=== PATIENT | female | born 1965 | race Caucasian/White ===

== ENCOUNTER 2018-07-25 18:23 | Emergency (ER) | payer BC ==
[2018-07-25] MEDS ORDERED: DIAZEPAM 2 MG TABLET ONE (20:06)
[2018-07-25] MEDS ORDERED: KETOROLAC 30 MG/ML INJ ONE (20:06)
[2018-07-25] MEDS ORDERED: FENTANYL CITR 100 MCG/2 ML ONE (20:06)
--- NOTE | 2018-07-25 20:08 | EDPHYS ---
Physician Documentation [facility] Name: Leeanne Sinclair Age: 53 yrs Sex: Female : 1965 Arrival Date: 07/25/2018 Time: 18:26 Bed External Waiting Private MD: Neeraj Driver C ED Physician Bhupendra Malik HPI: 07/25 19:57 This 53 yrs old Female presents to ER via Ambulatory with complaints of Back snw Pain. 19:57 The patient presents with pain that is acute. The symptoms are located in the low back. snw Onset: The symptoms/episode began/occurred suddenly, 3 day(s) ago, and became persistent. The pain radiates to the left lower back and left gluteus ivania. Associated signs and symptoms: The patient has no apparent associated signs or symptoms. The problem was sustained when lifting patient. Severity of symptoms: At their worst the symptoms were moderate, severe. The patient has experienced a previous episode. The patient has not recently seen a physician. Historical: - Allergies: 18:35 PENICILLINS; sv - PMHx: 18:35 None; sv - PSHx: 18:35 lap band; sv 18:36 back; sv - Immunization history:: Flu vaccine is not up to date. - Social history:: Smoking status: Patient/guardian denies using tobacco. - Ebola Screening: : No symptoms or risks identified at this time. ROS: 19:55 Constitutional: Negative for fever, chills, and weight loss, Eyes: Negative for injury, snw pain, redness, and discharge, ENT: Negative for injury, pain, and discharge, Neck: Negative for injury, pain, and swelling, Cardiovascular: Negative for chest pain, palpitations, and edema, Respiratory: Negative for shortness of breath, cough, wheezing, and pleuritic chest pain, Abdomen/GI: Negative for abdominal pain, nausea, vomiting, diarrhea, and constipation, Back: Negative for injury, + for pain to left lower back and hip : Negative for injury, bleeding, discharge, and swelling, Skin: Negative for injury, rash, and discoloration, Neuro: Negative for headache, weakness, numbness, tingling, and seizure. 19:55 MS/Extremity: Negative for injury and deformity. Exam: 19:55 Constitutional: This is a well developed, well nourished patient who is awake, alert, snw and in no acute distress. Head/Face: Normocephalic, atraumatic. Eyes: Pupils equal round and reactive to light, extra-ocular motions intact. Lids and lashes normal. Conjunctiva and sclera are non-icteric and not injected. Cornea within normal limits. Periorbital areas with no swelling, redness, or edema. ENT: Nares patent. No nasal discharge, no septal abnormalities noted. Tympanic membranes are normal and external auditory canals are clear. Oropharynx with no redness, swelling, or masses, exudates, or evidence of obstruction, uvula midline. Mucous membranes moist. Neck: Trachea midline, no thyromegaly or masses palpated, and no cervical lymphadenopathy. Supple, full range of motion without nuchal rigidity, or vertebral point tenderness. No Meningismus. Chest/axilla: Normal chest wall appearance and motion. Nontender with no deformity. No lesions are appreciated. Cardiovascular: Regular rate and rhythm with a normal S1 and S2. No gallops, murmurs, or rubs. Normal PMI, no JVD. No pulse deficits. Respiratory: Lungs have equal breath sounds bilaterally, clear to auscultation and percussion. No rales, rhonchi or wheezes noted. No increased work of breathing, no retractions or nasal flaring. Abdomen/GI: Soft, non-tender, with normal bowel sounds. No distension or tympany. No guarding or rebound. No evidence of tenderness throughout. Skin: Warm, dry with normal turgor. Normal color with no rashes, no lesions, and no evidence of cellulitis. MS/ Extremity: Pulses equal, no cyanosis. Neurovascular intact. Full, normal range of motion. Neuro: Awake and alert, GCS 15, oriented to person, place, time, and situation. Cranial nerves II-XII grossly intact. Motor strength 5/5 in all extremities. Sensory grossly intact. Cerebellar exam normal. Normal gait. Psych: Awake, alert, with orientation to person, place and time. Behavior, mood, and affect are within normal limits. 19:55 Back: pain, that is moderate, of the left low back and left hip, normal spinal alignment noted, vertebral tenderness, is not appreciated, muscle spasm, is appreciated in the low back area. Vital Signs: 18:36 BP 132 / 61; Pulse 101; Resp 18; Temp 98.1; Pulse Ox 100% ; Weight 113.4 kg; Height 5 sv ft. 7 in. (170.18 cm); Pain 8/10; 20:00 BP 119 / 68; Pulse 68; Resp 18; Pulse Ox 98% ; Pain 6/10; ea 18:36 Body Mass Index 39.16 (113.40 kg, 170.18 cm) sv MDM: 19:48 Patient medically screened. snw 20:26 Data reviewed: vital signs, nurses notes. Data interpreted: Pulse oximetry: on room air snw is 100 %. Interpretation: normal. Counseling: I had a detailed discussion with the patient and/or guardian regarding: the historical points, exam findings, and any diagnostic results supporting the discharge/admit diagnosis, lab results, the need for outpatient follow up, to return to the emergency department if symptoms worsen or persist or if there are any questions or concerns that arise at home. Special discussion: I have referred the patient to see his PCP for further evaluation of high blood pressure. Based on the history and exam findings, there is no indication for further emergent testing or inpatient evaluation. I discussed with the patient/guardian the need to see the back specialist for further evaluation of the symptoms. I discussed with the patient/guardian the need to see the primary care provider for further evaluation of the symptoms. 07/25 19:01 Order name: Urine Microscopic Only; Complete Time: 20:47 snw 07/25 19:43 Order name: Urine Dipstick--Ancillary (enter results); Complete Time: 20:19 ms 07/25 19:01 Order name: Urine Dipstick-Ancillary (obtain specimen); Complete Time: 19:41 snw Administered Medications: 20:10 Drug: TORadol 60 mg Route: IM; Site: right gluteus; ea 20:30 Follow up: Response: No adverse reaction; Pain is decreased ea 20:10 Drug: fentaNYL (PF) 50 mcg Route: IM; Site: right deltoid; ea 20:30 Follow up: Response: No adverse reaction; Pain is decreased ea 20:10 Drug: Valium 2 mg Route: PO; ea 21:47 Follow up: Response: No adverse reaction; Marked relief of symptoms ea Disposition: 07/25/18 20:07 Discharged to Home. Impression: Low back pain, Other bursitis of hip. - Condition is Stable. - Discharge Instructions: Back Pain, Adult, Hip Bursitis, Rehydration, Adult, Back Injury Prevention. - Prescriptions for Diclofenac Sodium 75 mg Oral Tablet Sustained Release - take 1 tablet by ORAL route 2 times per day; 30 tablet. orphenadrine citrate 100 mg Oral Tablet Sustained Release - take 1 tablet by ORAL route 2 times per day As needed; 20 tablet. - Work release form, Medication Reconciliation Form, Thank You Letter, Antibiotic Education, Prescription Opioid Use form. - Follow up: Neeraj Driver MD; When: 5 - 6 days; Reason: Recheck today's complaints, Continuance of care, Re-evaluation by your physician. Follow up: Emergency Department; When: As needed; Reason: Worsening of condition. Addendum: 08/02/2018 11:46 Co-signature as Attending Physician, Bhupendra Malik MD. g s Signatures: Dispatcher [employer] EDMS Nimisha Olvera RN RN sv Therrien, Shelly, SQL DBA-C SQL DBA-Csnw Mile Vega RN RN ea Starr, Gregory, MD MD Corrections: (The following items were deleted from the chart) 07/25 21:44 20:07 07/25/2018 20:07 Discharged to Home. Impression: Low back pain; Other bursitis of ea hip. Condition is Stable. Discharge Instructions: Back Pain, Adult, Hip Bursitis, Rehydration, Adult, Back Injury Prevention. Prescriptions for Diclofenac Sodium 75 mg Oral Tablet Sustained Release - take 1 tablet by ORAL route 2 times per day; 30 tablet, orphenadrine citrate 100 mg Oral Tablet Sustained Release - take 1 tablet by ORAL route 2 times per day As needed; 20 tablet. and Forms are Work release form, Medication Reconciliation Form, Thank You Letter, Antibiotic Education, Prescription Opioid Use. Follow up: Neeraj Driver; When: 5 - 6 days; Reason: Recheck today's complaints, Continuance of care, Re-evaluation by your physician. Follow up: Emergency Department; When: As needed; Reason: Worsening of condition. snw
--- NOTE | 2018-07-25 20:08 | ER ---
Nurse's Notes [facility] Name: Leeanne Sinclair Age: 53 yrs Sex: Female : 1965 Arrival Date: 07/25/2018 Time: 18:26 Bed External Waiting Private MD: Neeraj Driver C Diagnosis: Low back pain;Other bursitis of hip Presentation: 07/25 18:35 Presenting complaint: Patient states: low back pain after [facility]. No meds taken today. Transition of care: patient was not received from another setting of care. Onset of symptoms was July 23, 2018. Care prior to arrival: None. 18:35 Method Of Arrival: Ambulatory 18:35 Acuity: WILLIS 4 18:47 Risk Assessment: Do you want to hurt yourself or someone else? Patient reports no la1 desire to harm self or others. Initial Sepsis Screen: Does the patient meet any 2 criteria? No. Patient's initial sepsis screen is negative. Does the patient have a suspected source of infection? No. Patient's initial sepsis screen is negative. Historical: - Allergies: 18:35 PENICILLINS; sv - PMHx: 18:35 None; sv - PSHx: 18:35 lap band; sv 18:36 back; sv - Immunization history:: Flu vaccine is not up to date. - Social history:: Smoking status: Patient/guardian denies using tobacco. - Ebola Screening: : No symptoms or risks identified at this time. Screenin:46 Abuse screen: Denies threats or abuse. Nutritional screening: No deficits noted. la1 Tuberculosis screening: No symptoms or risk factors identified. Fall Risk None identified. Assessment: 18:46 Reassessment: Pt denies loss of bowel/bladder continence. General: Appears in no la1 apparent distress. Behavior is calm, cooperative. Pain: Complains of pain in left low back. Neuro: Level of Consciousness is awake, alert, obeys commands, Oriented to person, place, time, situation, Moves all extremities. Gait is steady, Speech is normal, Facial symmetry appears normal, Pupils are PERRLA. Cardiovascular: Patient's skin is warm and dry. Respiratory: Airway is patent Respiratory effort is even, unlabored, Respiratory pattern is regular, symmetrical. GI: No signs and/or symptoms were reported involving the gastrointestinal system. : No signs and/or symptoms were reported regarding the genitourinary system. 19:55 General: Appears uncomfortable, Behavior is calm, cooperative. Pain: Complains of pain ea in left gluteus ivania and left lower back and low back area and left low back. Neuro: Level of Consciousness is awake, alert, obeys commands, Oriented to person, place, time, situation. Cardiovascular: Patient's skin is warm and dry. Respiratory: Airway is patent Respiratory effort is even, unlabored, Respiratory pattern is regular, symmetrical. GI: No signs and/or symptoms were reported involving the gastrointestinal system. : No signs and/or symptoms were reported regarding the genitourinary system. Derm: No signs and/or symptoms reported regarding the dermatologic system. 20:30 Reassessment: Patient and/or family updated on plan of care and expected duration. Pain ea level reassessed. Patient is alert, oriented x 3, equal unlabored respirations, skin warm/dry/pink. Discharge instructions given to patient, verbalized the understanding of instruciton. Vital Signs: 18:36 BP 132 / 61; Pulse 101; Resp 18; Temp 98.1; Pulse Ox 100% ; Weight 113.4 kg; Height 5 sv ft. 7 in. (170.18 cm); Pain 8/10; 20:00 BP 119 / 68; Pulse 68; Resp 18; Pulse Ox 98% ; Pain 6/10; ea 18:36 Body Mass Index 39.16 (113.40 kg, 170.18 cm) sv ED Course: 18:26 Patient arrived in ED. mr 18:27 Neeraj Driver MD is Private Physician. mr 18:35 Triage completed. sv 18:36 Patient placed. sv 18:47 Call light in reach. Side rails up X 1. la1 18:47 Arm band placed on left wrist. la1 18:59 [facility]C [facility]. snw 18:59 Bhupendra Malik MD is Attending Physician. snw 19:43 Mile Vega RN is Primary Nurse. ea 20:06 Neeraj Driver MD is Referral Physician. snw 20:30 No provider procedures requiring assistance completed. Patient did not have IV access ea during this emergency room visit. Administered Medications: 20:10 Drug: TORadol 60 mg Route: IM; Site: right gluteus; ea 20:30 Follow up: Response: No adverse reaction; Pain is decreased ea 20:10 Drug: fentaNYL (PF) 50 mcg Route: IM; Site: right deltoid; ea 20:30 Follow up: Response: No adverse reaction; Pain is decreased ea 20:10 Drug: Valium 2 mg Route: PO; ea 21:47 Follow up: Response: No adverse reaction; Marked relief of symptoms ea Outcome: 20:07 Discharge ordered by MD. judd 20:35 Patient left the ED. ea 20:35 Discharged to home ambulatory, with family. ea 20:35 Condition: improved 20:35 Discharge instructions given to patient, Instructed on discharge instructions, follow up and referral plans. medication usage, Demonstrated understanding of instructions, follow-up care, medications, Prescriptions given X 2. Signatures: Nimisha Olvera, RN RN Liane Ruvalcaba, LICENSED PSYCHOLOGIST DIRECTOR-C LICENSED PSYCHOLOGIST DIRECTOR-Csnw Tamara BurdenTushar RN RN la1 Knox, Taylor, RN RN tl2 Mile Vega RN RN ea Corrections: (The following items were deleted from the chart) 20:52 20:51 Reassessment: Patient appears in no apparent distress at this time. Patient tl2 and/or family updated on plan of care and expected duration. Pain level reassessed. Patient is alert, oriented x 3, equal unlabored respirations, skin warm/dry/pink. tl2 21:46 21:44 Patient left the ED. derrell ea
[2018-07-25 20:18] LABS: Urine Blood NEGATIVE (NEG); Urine Glucose NEGATIVE (NEG); Urine Protein NEGATIVE (NEG); Urine Specific Gravity 1.015 (1.005-1.030)
[2018-07-25 20:42] LABS: Urine Bacteria <20 /HPF (<20); Urine Culture Reflex Order NOT NEEDED; Urine RBC <5 /HPF (NONE SEEN)
== END 2018-07-25 21:44 | disposition home or self-care (01) ==
LOC: ER 18:23
DX: M70.72 Other bursitis of hip, left hip (principal); Z88.0 Allergy status to penicillin
CPT/HCPCS: 81003; 81015; 96372; 99283; J3010

== ENCOUNTER → 2023-12-11 | Emergency (ER) | payer OTHER ==
[~2023-12-11] MED LIST: NA CHLORIDE 0.9% 1,000 ML ONE; ONDANSETRON 4 MG/2 ML VIAL ONE
[2023-12-11 09:41] LABS: Absolute Basophils 0.1 K/uL (0-0.5); Absolute Lymphocytes (CBC) 1.4 K/uL (0.7-4.9); Absolute Monocytes 0.8 K/uL (0.1-1.3); Absolute Neutrophil 8.3 K/uL (1.8-8.0); Basophils % 0.5 % (0-1.3); Eosinophils % 0.4 % (0-4.4); Hematocrit 44.7 % (36.0-45.0); Hemoglobin 15.3 g/dL (12.0-15.0); Lymphocytes % 13.5 % (15.3-44.8); MCH 32.5 pg (27.0-35.0); MCHC 34.1 g/dL (32.0-36.0); MCV 95.2 fL (80-100); MPV 8.2 fL (7.6-11.3); Monocytes % 7.5 % (3.3-12.3); Neutrophils % 78.1 % (41.7-73.7); Nucleated Red Blood Cells % 0.1 % (0-0); Platelets 320 thou/uL (152-406); Red Cell Distribution Width 13.9 % (12.1-15.2)
[2023-12-11 09:41] LABS: Arterial Blood Carboxyhemoglob 0.9 % (0-1.5); Blood Gas Oxyhemoglobin 65.4 % (94-97); Blood Gas THB 15.5 g/dl (12-18); Blood O2 Saturation 67.1 % (92-98.5)
[2023-12-11 09:44] LABS: Specific Gravity 1.016 (1.005-1.030); Sqamous Epithelial 20-50 /HPF (None Seen); Urine Bacteria None Seen /HPF (<20); Urine Bilirubin NEGATIVE (Negative); Urine Blood Trace (Negative); Urine Clarity Extremely Turbid (Clear); Urine Color Yellow (Yellow); Urine Culture Reflex Order NOT NEEDED; Urine Glucose NEGATIVE (Negative); Urine Ketones 1+ (Negative); Urine Microscopic Reflex YN ORDER UMIC; Urine Mucus Slight /HPF (None Seen); Urine Nitrite NEGATIVE (Negative); Urine Protein TRACE (Negative); Urine RBC <5 /HPF (None Seen); Urine Urobilinogen Normal (Normal); Urine pH 5.5 (5.0-7.0)
[2023-12-11 10:28] LABS: Anion Gap 11.5 mEq/L (5.0-15.0); Bilirubin Total 0.9 mg/dL (0.2-1.0); Globulin 4.2 g/dL (2.3-3.5); Potassium 3.5 mEq/L (3.5-5.1); Protein, Total 8.2 g/dL (6.4-8.2)
[2023-12-11 10:32] LABS: BETA HYDROXYBUTYRATE 1.13 mmol/L (0.02-0.27)
--- NOTE | 2023-12-11 11:24 | RAD REPORT ---
EXAM DESCRIPTION: CT - Abdomen Pelvis W Contrast - 12/11/2023 10:46 am CLINICAL HISTORY: Abdominal pain COMPARISON: 2016 TECHNIQUE: Computed axial tomography of the abdomen pelvis was obtained. 100 cc Isovue-300 was admin istered intravenously. Oral contrast was not requested which limits evaluation of bowel and appendix All CT scans are performed using dose optimization technique as appropriate and may include automated exposure control or mA/KV adjustment according to patient size. FINDINGS: Cholelithiasis. Liver, spleen, pancreas, right adrenal appear unremarkable. 2.5 centimeter left renal cyst Gastric band in place Small left adrenal nodule unchanged 2015 consistent with an adenoma. No follow-up recommended. Right kidney has decreased in size with cortical thinning. Postsurgical changes lower thoracic/lumbar spine. Artifact from the hardware does obscure surrounding detail somewhat. Normal appendix. No adnexal mass. No evidence diverticulitis IMPRESSION: Cholelithiasis The right kidney has decreased in size with cortical thinning. This most likely is either secondary t o ischemia or inflammation
--- NOTE | 2023-12-11 14:36 | RAD REPORT ---
EXAM DESCRIPTION: US - Abdomen Exam Limited - 12/11/2023 1:17 pm CLINICAL HISTORY: ruq;Abd pain COMPARISON: Abdomen Pelvis W Contrast dated 12/11/2023 TECHNIQUE: Sonographic grayscale and color flow images of the right upper abdominal quadrant were o btained. FINDINGS: The gallbladder demonstrates numerous gallstones and sludge, with the largest shadowing ga llstone at the fundus measuring 2.1 cm. The gallbladder is somewhat contracted. No pericholecystic fl uid or gallbladder wall thickening. The common bile duct is normal measuring 4 mm. The liver demonstrates no findings of intrahepatic biliary dilatation. IMPRESSION: Cholelithiasis and sludge, without sonographic findings to suggest acute cholecystitis.
--- NOTE | 2023-12-11 15:20 | EDPHYS ---
Physician Documentation [facility] Name: Leeanne Sinclair Age: 58 yrs Sex: Female : 1965 Arrival Date: 12/11/2023 Time: 08:59 Bed 20 Private MD: ED Physician Christ Flores HPI: 12/10 09:20 This 58 yrs old Female presents to ER via Ambulatory with complaints of Abdominal Pain. rt 09:20 Patient presents to the ED with an epigastric pain as well as nausea, vomiting starting rt about 5 days ago. Of note, patient recently started semaglutide. Patient does have a Lap-Band in place. Patient is reportedly on cephalexin for reported kidney infection. Denies other acute complaints at this time, symptoms are moderate in severity, no other aggravating or elevating factors.. Historical: - Allergies: 09:12 PENICILLINS; nj1 - PSHx: 09:15 lap band; ll1 - Immunization history:: Adult Immunizations up to date. - Social history:: Smoking status: Patient denies any tobacco usage or history of. - Family history:: not pertinent. ROS: 09:20 Constitutional: Negative for fever, chills, and weight loss, Cardiovascular: Negative rt for chest pain, palpitations, and edema, Respiratory: Negative for shortness of breath, cough, wheezing, and pleuritic chest pain, MS/Extremity: Negative for injury and deformity, Skin: Negative for injury, rash, and discoloration, Neuro: Negative for headache, weakness, numbness, tingling, and seizure, Psych: Negative for depression, anxiety, suicide ideation, homicidal ideation, and hallucinations, 09:20 Abdomen/GI: Positive for abdominal pain, nausea and vomiting, Exam: 09:20 Constitutional: This is a well developed, well nourished patient who is awake, alert, rt and in no acute distress. Head/Face: Normocephalic, atraumatic. Chest/axilla: Normal chest wall appearance and motion. Nontender with no deformity. No lesions are appreciated. Cardiovascular: Regular rate and rhythm with a normal S1 and S2. No gallops, murmurs, or rubs. Normal PMI, no JVD. No pulse deficits. Respiratory: Lungs have equal breath sounds bilaterally, clear to auscultation and percussion. No rales, rhonchi or wheezes noted. No increased work of breathing, no retractions or nasal flaring. Skin: Warm, dry with normal turgor. Normal color with no rashes, no lesions, and no evidence of cellulitis. MS/ Extremity: Pulses equal, no cyanosis. Neurovascular intact. Full, normal range of motion. Neuro: Awake and alert, GCS 15, oriented to person, place, time, and situation. Cranial nerves II-XII grossly intact. Motor strength 5/5 in all extremities. Sensory grossly intact. Cerebellar exam normal. Normal gait. Psych: Awake, alert, with orientation to person, place and time. Behavior, mood, and affect are within normal limits. 09:20 Abdomen/GI: Mild tenderness to the epigastrium without rebound, guarding, distention, Vital Signs: 09:03 BP 137 / 77; Pulse 90; Resp 18; Pulse Ox 100% ; Weight 111.13 kg; Height 5 ft. 7 in. ; nj1 10:11 BP 131 / 77; Pulse 84; Resp 18; Pulse Ox 100% on R/A; mb9 11:53 BP 123 / 68; Pulse 74; Resp 18; Temp 98.2(O); Pulse Ox 98% on R/A; mb9 13:35 BP 130 / 62; Pulse 78; Resp 18; Pulse Ox 100% on R/A; mb9 15:13 BP 112 / 73; Pulse 80; Resp 16; Pulse Ox 100% on R/A; Pain 0/10; mb9 09:03 Body Mass Index 38.37 (111.13 kg, 170.18 cm) nj1 15:13 Pain Scale: Adult mb9 MDM: 09:04 Patient medically screened. rt 15:30 Differential diagnosis: Pancreatitis, euglycemic DKA, cholecystitis, rt choledocholithiasis, cholelithiasis. Data reviewed: vital signs, nurses notes. Consideration of Admission/Observation Escalation of care including admission/observation considered. Management of patient was discussed with the following: Primary Care Provider: Discussed with patient's PCP. Independent interpretation of the following test(s) in the Emergency Department CT Scan: My interpretation is No bowel obstruction send interpretation of CT scan images. Counseling: I had a detailed discussion with the patient and/or guardian regarding the historical points, exam findings, and any diagnostic results supporting the discharge/admit diagnosis, lab results, radiology results, the need for outpatient follow up, to return to the emergency department if symptoms worsen or persist or if there are any questions or concerns that arise at home. Response to treatment: the patient's symptoms have markedly improved after treatment. 12/10 09:15 Order name: CBC with Diff; Complete Time: 10:09 rt 12/10 09:15 Order name: CMP; Complete Time: 12:02 rt 12/10 09:15 Order name: Lipase; Complete Time: 12:02 rt 12/10 09:15 Order name: Urinalysis w/ reflexes; Complete Time: 10:09 rt 12/10 09:15 Order name: ABG: VBG only; Complete Time: 10:09 rt 12/10 09:38 Order name: BETA HYDROXYBUTYRATE; Complete Time: 12:02 EDMS 12/10 09:15 Order name: CT Abd/Pelvis - IV Contrast Only; Complete Time: 12:02 rt 12/10 12:45 Order name: US Abdomen Limited; Complete Time: 14:37 rt 12/10 09:15 Order name: IV Saline Lock; Complete Time: 09:18 rt 12/10 09:15 Order name: Labs collected and sent; Complete Time: 09:18 rt Administered Medications: 09:40 Drug: NS 0.9% IV 1000 ml IV at 1 bolus Per protocol; 1000 mL bolus Route: IV; Rate: 1 ll1 bolus; Site: right antecubital; 10:57 Follow up: Response: No adverse reaction; IV Status: Completed infusion mb9 09:40 Drug: Ondansetron IVP 4 mg IVP once; over 2 minutes Route: IVP; Site: right antecubital;ll1 10:57 Follow up: Response: No adverse reaction mb9 Disposition Summary: 12/11/23 15:19 Discharge Ordered Notes: Location: Home rt Problem: new rt Symptoms: have improved rt Condition: Stable rt Diagnosis - Other cholelithiasis without obstruction rt Followup: rt - With: Alo Rodriguez MD - When: 5 - 6 days - Reason: Followup: rt - With: Christopher Driver MD - When: 2 - 3 days - Reason: Discharge Instructions: - Discharge Summary Sheet rt - Cholelithiasis rt Forms: - Medication Reconciliation Form rt - Thank You Letter rt - Antibiotic Education rt - Prescription Opioid Use rt - Patient Portal Instructions rt - Leadership Thank You Letter rt Prescriptions: - acetaminophen-codeine 300-30 mg Oral tablet - take 1 tablet ORAL route every 6 hours; 18 tablet; Refills: 0, Product rt Selection Permitted - ondansetron 4 mg Oral Tablet,disintegrating - take 1 tablet ORAL route every 6 hours as needed for nausea; 18 tablet; rt Refills: 0, Product Selection Permitted Signatures: Dispatcher [employer] Rinku Walker RN RN ll1 Christ Flores MD MD rt Naila Shields RN RN nj1 Tamara Vasques RN mb9 Corrections: (The following items were deleted from the chart) 15:25 09:15 BETA HYDROXYBUTYRATE+C.LAB.BRZ ordered. rt mb9
--- NOTE | 2023-12-11 15:20 | ER ---
Nurse's Notes [facility] Name: Leeanne Sinclair Age: 58 yrs Sex: Female : 1965 Arrival Date: 12/11/2023 Time: 08:59 Bed 20 Private MD: Diagnosis: Other cholelithiasis without obstruction Presentation: 12/10 09:03 Chief complaint: Patient states: Abdominal pain, nauseous, recently started on nj1 semaglutide. No appetite. Belching. 09:03 Ebola Screen: Patient denies travel to an Ebola-affected area in the 21 days before nj illness onset. Risk Assessment: Do you want to hurt yourself or someone else? Patient reports no desire to harm self or others. Onset of symptoms was December 06, 2023. 09:03 Method Of Arrival: Ambulatory [facility] 09:03 Acuity: WILLIS 3 [facility] 09:15 Coronavirus screen: Client denies travel out of the [place] in the last 14 days. At this 1 time, the client does not indicate any symptoms associated with coronavirus-19. Initial Sepsis Screen: Does the patient meet any 2 criteria? No. Patient's initial sepsis screen is negative. Does the patient have a suspected source of infection? No. Patient's initial sepsis screen is negative. Triage Assessment: 09:16 General: Appears uncomfortable, Behavior is calm, cooperative, appropriate for age. ll1 Pain: Complains of pain in abdomen. Neuro: No deficits noted. Cardiovascular: No deficits noted. GI: Reports bloating, cramping, gaseousness, nausea. Historical: - Allergies: 09:12 PENICILLINS; nj1 - PSHx: 09:15 lap band; ll1 - Immunization history:: Adult Immunizations up to date. - Social history:: Smoking status: Patient denies any tobacco usage or history of. - Family history:: not pertinent. Screenin:11 [facility] ED Fall Risk Assessment (Adult) History of falling in the last 3 months, 1 including since admission No falls in past 3 months (0 pts) Confusion or Disorientation No (0 pts) Intoxicated or Sedated No (0 pts) Impaired Gait Yes (1 pt) Mobility Assist Device Used Yes (1 pt) Altered Elimination No (0 pt) Score/Fall Risk Level 0 - 2 = Low Risk Maintained a safe environment, Hourly rounding (assess needs \T\ fall precautionary measures) done. Abuse screen: Denies threats or abuse. Nutritional screening: No deficits noted. Tuberculosis screening: No symptoms or risk factors identified. Assessment: 09:41 Reassessment: No changes from previously documented assessment. Patient and/or family ll1 updated on plan of care and expected duration. Pain level reassessed. Patient is alert, oriented x 3, equal unlabored respirations, skin warm/dry/pink. 10:10 General: Appears uncomfortable, Behavior is calm, cooperative, appropriate for age. ll1 Pain: Complains of pain in abdomen Quality of pain is described as aching, crampy. GI: Bowel sounds present X 4 quads. Abd is soft Abd is non tender. 10:20 General: Appears in no apparent distress. Behavior is calm, cooperative. Pain: mb9 Complains of pain in abdomen Pain radiates to LLQ Quality of pain is described as crampy. Neuro: Marquis Agitation-Sedation Scale (RASS): 0 - Alert and Calm Level of Consciousness is awake, alert, obeys commands, Oriented to person, place, time, situation, Appropriate for age. Cardiovascular: Patient's skin is warm and dry. Respiratory: Airway is patent Respiratory effort is even, unlabored, Respiratory pattern is regular, symmetrical. GI: Abdomen is round non-distended, Bowel sounds present X 4 quads. Abd is soft Abdomen is tender to palpation in epigastric area and left lower quadrant Reports cramping, nausea, Patient currently denies constipation, diarrhea. : No signs and/or symptoms were reported regarding the genitourinary system. EENT: No signs and/or symptoms were reported regarding the EENT system. Derm: Skin is pink, warm \T\ dry. Musculoskeletal: Range of motion: intact in all extremities. 11:33 Reassessment: No changes from previously documented assessment. Patient and/or family mb9 updated on plan of care and expected duration. Pain level reassessed. Patient is alert, oriented x 3, equal unlabored respirations, skin warm/dry/pink. 12:50 Reassessment: No changes from previously documented assessment. Patient and/or family mb9 updated on plan of care and expected duration. Pain level reassessed. Patient is alert, oriented x 3, equal unlabored respirations, skin warm/dry/pink. 13:47 Reassessment: No changes from previously documented assessment. Patient and/or family mb9 updated on plan of care and expected duration. Pain level reassessed. Patient is alert, oriented x 3, equal unlabored respirations, skin warm/dry/pink. 15:13 Reassessment: No changes from previously documented assessment. Patient and/or family mb9 updated on plan of care and expected duration. Pain level reassessed. Patient is alert, oriented x 3, equal unlabored respirations, skin warm/dry/pink. Vital Signs: 09:03 BP 137 / 77; Pulse 90; Resp 18; Pulse Ox 100% ; Weight 111.13 kg; Height 5 ft. 7 in. ; nj1 10:11 BP 131 / 77; Pulse 84; Resp 18; Pulse Ox 100% on R/A; mb9 11:53 BP 123 / 68; Pulse 74; Resp 18; Temp 98.2(O); Pulse Ox 98% on R/A; mb9 13:35 BP 130 / 62; Pulse 78; Resp 18; Pulse Ox 100% on R/A; mb9 15:13 BP 112 / 73; Pulse 80; Resp 16; Pulse Ox 100% on R/A; Pain 0/10; mb9 09:03 Body Mass Index 38.37 (111.13 kg, 170.18 cm) nj1 15:13 Pain Scale: Adult mb9 ED Course: 09:01 Patient arrived in ED. mg5 09:02 Christ Flores MD is Attending Physician. rt 09:12 Triage completed. nj1 09:12 Arm band placed on. nj1 09:18 Rinku Martinez, SUSAN is Primary Nurse. ll1 09:20 Patient has correct armband on for positive identification. Provided Education on: ER ll1 procedures and process. 09:25 Warm blanket given. ll1 09:28 Inserted saline lock: 22 gauge in right antecubital area, using aseptic technique. hb Blood collected. 09:28 Initial lab(s) drawn, by me, sent to lab. ll1 10:11 Placed in gown. Bed in low position. Call light in reach. Side rails up X 1. Provided mb9 Education on: press call light if needing anything. Client placed on continuous cardiac and pulse oximetry monitoring. NIBP monitoring applied. Door closed. Noise minimized. Warm blanket given. 10:12 Report received from SUSAN Ferro. mb9 10:27 Primary Nurse role handed off by Rinku Martinez RN mb9 10:27 Tamara Vasques, RN is Primary Nurse. mb9 10:[address] via stretcher. mb9 10:48 CT Abd/Pelvis - IV Contrast Only In Process Unspecified. EDMS 10:51 Patient moved back from CT. mb9 12:51 Patient taken to ultrasound. via stretcher. mb9 13:19 US Abdomen Limited In Process Unspecified. EDMS 13:47 No provider procedures requiring assistance completed. mb9 15:18 Alo Rodriguez MD is Referral Physician. rt 15:18 Christopher Driver MD is Referral Physician. rt 15:19 IV discontinued, intact, bleeding controlled, No redness/swelling at site. Pressure mb9 dressing applied. Administered Medications: 09:40 Drug: NS 0.9% IV 1000 ml IV at 1 bolus Per protocol; 1000 mL bolus Route: IV; Rate: 1 ll1 bolus; Site: right antecubital; 10:57 Follow up: Response: No adverse reaction; IV Status: Completed infusion mb9 09:40 Drug: Ondansetron IVP 4 mg IVP once; over 2 minutes Route: IVP; Site: right antecubital;ll1 10:57 Follow up: Response: No adverse reaction mb9 Medication: 10:11 VIS not applicable for this client. ll1 Outcome: 15:19 Discharge ordered by MD. rt 15:24 Discharged to home ambulatory, with family, mb9 15:24 Condition: stable 15:24 Discharge instructions given to patient, family, Instructed on discharge instructions, follow up and referral plans. Demonstrated understanding of instructions, follow-up care, medications, Prescriptions given X 2, 15:25 Patient left the ED. mb9 Signatures: Dispatcher [employer] EDMS Kristen Holt RN RN Rinku Martinez RN RN ll1 Tamara Vasques, RN RN mb9 Christ Flores MD MD rt Naila Shields RN RN nj1 Anastasiya Mendez mg5 Corrections: (The following items were deleted from the chart) 11:54 11:53 Pulse 54bpm; Resp 18bpm; Pulse Ox 98% RA; Temp 98.2F Oral; mb9 mb9
[2023-12-11 15:59] VITALS: BP 112/73; O2SAT 100
[2023-12-11 16:00] VITALS: TEMP 98.2
== END ==
LOC: ER 08:59 → SUPCPDRO 08:59
DX: K80.80 Other cholelithiasis without obstruction (principal); Z88.0 Allergy status to penicillin
CPT/HCPCS: 96361; 85025; 81001; 36415; 83690; 80053; 82010; 74177; 76705; 82805; 96374; 99285; Q9967; J2405; J7030

== ENCOUNTER 2024-04-03 09:37 | Emergency (ER) | payer OTHER ==
--- NOTE | 2024-04-03 10:12 | RAD REPORT ---
EXAM DESCRIPTION: RAD - Foot Left 3 View - 04/03/2024 9:58 am CLINICAL HISTORY: Left Foot pain FINDINGS: Avulsion fracture lateral malleolus with soft tissue swelling. Widening of the space between AV tibial plafond and talar dome consistent with dislocation. Osteoporosis. Large calcaneal spur
--- NOTE | 2024-04-03 10:12 | RAD REPORT ---
EXAM DESCRIPTION: RAD - Ankle Left 3 View -04/03/2024 9:58 am CLINICAL HISTORY: Left ankle pain status post injury FINDINGS: Avulsion fracture lateral malleolus with soft tissue swelling. Widening of the space between AV tibial plafond and talar dome consistent with dislocation.
[2024-04-03] MEDS ORDERED: HYDROCODONE/APAP 7.5/325 MG TAB ONE (12:09)
--- NOTE | 2024-04-03 12:11 | ER ---
Nurse's Notes [facility] Name: Leeanne Sinclair Age: 59 yrs Sex: Female : 1965 Arrival Date: 04/03/2024 Time: 09:37 Bed [id number] Private MD: Diagnosis: Avulsion fracture lateral malleolus - left;Sprain of ankle Presentation: 04/03 09:53 Acuity: WILLIS 4 ph 10:08 Chief complaint: Patient states: Rolled L ankle when she got out of bed during the ph night. Coronavirus screen: Vaccine status: Patient reports being unvaccinated. Ebola Screen: No symptoms or risks identified at this time. Initial Sepsis Screen: Does the patient meet any 2 criteria? No. Patient's initial sepsis screen is negative. Does the patient have a suspected source of infection? No. Patient's initial sepsis screen is negative. Risk Assessment: Do you want to hurt yourself or someone else? Patient reports no desire to harm self or others. Onset of symptoms was April 03, 2024. 10:08 Method Of Arrival: Wheelchair ph Triage Assessment: 10:10 General: Appears in no apparent distress. Behavior is calm, cooperative. Pain: ph Complains of pain in anterior aspect of left ankle. Historical: - Allergies: 11:57 PENICILLINS; tl4 - PSHx: 11:57 lap band; tl4 - Immunization history:: Adult Immunizations unknown. - Infectious Disease History:: Denies. - Social history:: Smoking status: Patient denies any tobacco usage or history of. Screenin:57 [facility] ED Fall Risk Assessment (Adult) History of falling in the last 3 months, tl4 including since admission Yes- fall prone (multiple falls) (3 pts) Confusion or Disorientation No (0 pts) Intoxicated or Sedated No (0 pts) Impaired Gait Yes (1 pt) Mobility Assist Device Used No (0 pt) Altered Elimination No (0 pt) Score/Fall Risk Level 3 or more points = High Risk Oriented to surroundings, Maintained a safe environment, Educated pt \T\ family on fall prevention, incl call for assistance when getting out of bed, Assessed \T\ reinforced patient's understanding of fall precautions, Hourly rounding (assess needs \T\ fall precautionary measures) done, Used ambulatory aids as needed (educated on \T\ assisted with), Used gait belt as appropriate. Abuse screen: Denies threats or abuse. Denies injuries from another. Nutritional screening: No deficits noted. Tuberculosis screening: No symptoms or risk factors identified. Assessment: 11:55 General: Appears uncomfortable, Behavior is calm, cooperative. Pain: Complains of pain tl4 in left leg. Neuro: Level of Consciousness is awake, alert, obeys commands, Oriented to person, place, time, situation. Cardiovascular: Capillary refill < 3 seconds Patient's skin is warm and dry. Respiratory: Airway is patent Respiratory effort is even, unlabored, Respiratory pattern is regular, symmetrical, Breath sounds are clear bilaterally. GI: No signs and/or symptoms were reported involving the gastrointestinal system. : No signs and/or symptoms were reported regarding the genitourinary system. EENT: No signs and/or symptoms were reported regarding the EENT system. Derm: No signs and/or symptoms reported regarding the dermatologic system. Musculoskeletal: Swelling present in left foot Reports pain in left foot and left leg. 13:26 Reassessment: Patient and/or family updated on plan of care and expected duration. Pain tl4 level reassessed. Patient is alert, oriented x 3, equal unlabored respirations, skin warm/dry/pink. Pt states pain is diminished. Delayed time to discharge due to splinting process. Patient states feeling better. Patient states symptoms have improved. Vital Signs: 10:08 BP 156 / 66; Pulse 81; Resp 18; Temp 97.5; Pulse Ox 99% on R/A; Weight 111.13 kg; ph Height 5 ft. 7 in. ; 13:27 BP 135 / 88; Pulse 76; Resp 16; Temp 98.2(O); Pulse Ox 99% on R/A; Pain 4/10; tl4 10:08 Body Mass Index 38.37 (111.13 kg, 170.18 cm) ph 13:27 Pain Scale: Adult tl4 ED Course: 09:40 Patient arrived in ED. im 09:40 Tabatha Gasca FNP-C [facility]. kb 09:40 Wagner Baca MD is Attending Physician. kb 09:53 Triage completed. ph 09:59 Ankle Left 3 View XRAY In Process Unspecified. EDMS 10:00 Foot Left 3 View XRAY In Process Unspecified. EDMS 10:09 Arm band placed on Patient placed in waiting room, Patient notified of wait time. ph 11:55 Meek Hanson, RN is Primary Nurse. tl4 11:58 Patient has correct armband on for positive identification. Bed in low position. Call tl4 light in reach. Side rails up X 1. Adult w/ patient. Provided Education on: ed process, call duran. Client placed on continuous cardiac and pulse oximetry monitoring. NIBP monitoring applied. Door closed. Noise minimized. Lights dimmed. Moved to private room. Warm blanket given. Pillow given. 11:58 No provider procedures requiring assistance completed. Patient did not have IV access tl4 during this emergency room visit. 13:03 Orthoglass splint: Posterior short lleg splint applied on left leg. stirrup splint zm applied on left leg. 13:27 Crutch training done. tl4 Administered Medications: 12:23 Drug: Hydrocodone-Acetaminophen PO (7.5 mg-325 mg) 1 tabs PO once Route: PO; tl4 13:26 Follow up: Response: No adverse reaction; Pain is decreased tl4 Medication: 11:57 VIS not applicable for this client. tl4 Outcome: 12:10 Discharge ordered by . anmol 13:27 Discharged to home via wheelchair, with crutches, with family, tl4 13:27 Condition: stable 13:27 Discharge instructions given to patient, family, Instructed on discharge instructions, follow up and referral plans. medication usage, crutch walking, splint care Demonstrated understanding of instructions, follow-up care, medications, crutch walking, splint care, Prescriptions given X 1, 14:00 Patient left the ED. tl4 Signatures: Dispatcher [employer] EDTabatha Fajardo, MATTRESS STRIPPER-C JAY-Cary Avila, RN RN ph Linnette Rodriguez Itzel im Logdahl, Toni, RN RN tl4
--- NOTE | 2024-04-03 12:11 | EDPHYS ---
Physician Documentation [facility] Name: Leeanne Sinclair Age: 59 yrs Sex: Female : 1965 Arrival Date: 04/03/2024 Time: 09:37 Bed IW10 Private MD: ED Physician Wagner Baca HPI: 04/03 09:44 This 59 yrs old Female presents to ER via Unassigned with complaints of Ankle Injury. kb 09:44 Pt is a 59 year old female who presents for left ankle pain after rolling it last kb night. States she came to make sure it wasn't broken. States she has foot and ankle problems on the left side so she is supposed to wear a brace and didn't last night. . Historical: - Allergies: 11:57 PENICILLINS; tl4 - PSHx: 11:57 lap band; tl4 - Immunization history:: Adult Immunizations unknown. - Infectious Disease History:: Denies. - Social history:: Smoking status: Patient denies any tobacco usage or history of. ROS: 09:44 Constitutional: As per HPI kb Exam: 09:44 Constitutional: This is a well developed, well nourished patient who is awake, alert, kb and in no acute distress. Head/Face: Normocephalic, atraumatic. ENT: Moist Mucous membranes Cardiovascular: Regular rate Respiratory: Respirations even and unlabored. No increased work of breathing. Talking in full sentences Skin: Warm, dry with normal turgor. Normal color. Neuro: Awake and alert, GCS 15, oriented to person, place, time, and situation. Moves all extremities. Normal gait. 09:44 Musculoskeletal/extremity: Extremities: grossly normal except: noted in the anterior aspect of left ankle: pain, swelling, tenderness, ROM: intact in all extremities, Circulation is intact in all extremities. Sensation intact. Weight bearing: able to fully bear weight, Vital Signs: 10:08 BP 156 / 66; Pulse 81; Resp 18; Temp 97.5; Pulse Ox 99% on R/A; Weight 111.13 kg; ph Height 5 ft. 7 in. ; 13:27 BP 135 / 88; Pulse 76; Resp 16; Temp 98.2(O); Pulse Ox 99% on R/A; Pain 4/10; tl4 10:08 Body Mass Index 38.37 (111.13 kg, 170.18 cm) ph 13:27 Pain Scale: Adult tl4 MDM: 09:41 Patient medically screened. kb 09:46 Differential diagnosis: fracture, sprain. Data reviewed: vital signs, nurses notes. kb 12:09 Management of patient was discussed with the following: Discussed case and x-ray with kb Dr Baca. Recommends splint, crutches and follow up with ortho. Counseling: I had a detailed discussion with the patient and/or guardian regarding the historical points, exam findings, and any diagnostic results supporting the discharge/admit diagnosis, radiology results, the need for outpatient follow up, a orthopedic surgeon, to return to the emergency department if symptoms worsen or persist or if there are any questions or concerns that arise at home. 04/03 09:44 Order name: Ankle Left 3 View XRAY; Complete Time: 10:14 kb 04/03 09:44 Order name: Foot Left 3 View XRAY; Complete Time: 10:14 kb 04/03 10:46 Order name: Short Leg Splint; Complete Time: 13:03 kb 04/03 10:46 Order name: Crutches; Complete Time: 13:03 kb Administered Medications: 12:23 Drug: Hydrocodone-Acetaminophen PO (7.5 mg-325 mg) 1 tabs PO once Route: PO; tl4 13:26 Follow up: Response: No adverse reaction; Pain is decreased tl4 Disposition Summary: 04/03/24 12:10 Discharge Ordered Notes: Location: Home kb Condition: Stable kb Diagnosis - Avulsion fracture lateral malleolus - left kb - Sprain of ankle kb Followup: kb - With: Emergency Department - When: As needed - Reason: Worsening of condition Followup: kb - With: Private Physician - When: 2 - 3 days - Reason: Recheck today's complaints, Continuance of care, Re-evaluation by your physician Discharge Instructions: - Discharge Summary Sheet kb - Ankle Sprain, [id number] kb - Cast or Splint Care, Adult, [id number] kb - Ankle Fracture, [id number] kb Forms: - Medication Reconciliation Form kb - Antibiotic Education kb - Prescription Opioid Use kb - Patient Portal Instructions kb - Leadership Thank You Letter kb Prescriptions: - Diclofenac Sodium 75 mg Oral tablet, delayed release (enteric coated) - take 1 tablet ORAL route 2 times per day As needed; 30 tablet; Refills: 0, kb Product Selection Permitted Signatures: Dispatcher [employer] Tabatha Flanagan, COLLEGE RECRUITER-C COLLEGE RECRUITER-Ckb Meek Hanson RN RN tl4 Corrections: (The following items were deleted from the chart) 12:02 09:44 Pt is a 59 year old female who presents for left ankle pain after rolling it last kb night. States she came to make sure it wasn't broken. States she has foot and ankle problems on the left side so she is supposed to wear a brace and didn't last night. . kb
[2024-04-03 14:17] VITALS: BP 135/88; TEMP 98.2; O2SAT 99
== END 2024-04-03 14:00 | disposition home or self-care (01) ==
LOC: ER 09:37
PROC: 2W3MX1Z Immobilization of Left Lower Extremity using Splint (ICD-10-PCS; principal; 2024-04-03)
DX: S82.62XA Displaced fracture of lateral malleolus of left fibula, initial encounter for closed fracture (principal); S93.402A Sprain of unspecified ligament of left ankle, initial encounter
CPT/HCPCS: 99284

== ENCOUNTER 2025-01-26 09:56 | Emergency (ER) | payer OTHER ==
[2025-01-26] MEDS ORDERED: NA CHLORIDE 0.9% 2,000 ML ONE (10:38)
[2025-01-26] MEDS ORDERED: CEFTRIAXONE 2000 MG/VIAL ONE (10:38)
[2025-01-26] MEDS ORDERED: NA CHLORIDE 0.9% 100 ML ONE (10:38)
[2025-01-26] MEDS ORDERED: ONDANSETRON 4 MG/2 ML VIAL ONE (10:38)
[2025-01-26] MEDS ORDERED: FAMOTIDINE 20 MG/2 ML VIAL IV ONE (10:38)
[2025-01-26 11:22] LABS: Absolute Lymphocytes (CBC) 1.2 K/uL (0.7-4.9); Absolute Monocytes 0.5 K/uL (0.1-1.3); Absolute Neutrophil 5.9 K/uL (1.8-8.0); Basophils % 0.3 % (0-1.3); Eosinophils % 0.5 % (0-4.4); Hematocrit 42.3 % (36.0-45.0); Hemoglobin 15.1 g/dL (12.0-15.0); Lymphocytes % 15.7 % (15.3-44.8); MCH 33.9 pg (27.0-35.0); MCHC 35.7 g/dL (32.0-36.0); MPV 8.6 fL (7.6-11.3); Monocytes % 7.1 % (3.3-12.3); Neutrophils % 76.4 % (41.7-73.7); Nucleated Red Blood Cells % 0.1 % (0-0); Platelets 231 thou/uL (152-406); RBC Red Blood Cell Count 4.45 M/uL (3.86-4.86); Red Cell Distribution Width 13.1 % (12.1-15.2)
[2025-01-26 11:27] LABS: Specific Gravity 1.016 (1.005-1.030); Sqamous Epithelial >50 /HPF (None Seen); Urine Bacteria <20 /HPF (<20); Urine Bilirubin NEGATIVE (Negative); Urine Blood Trace (Negative); Urine Clarity Extremely Turbid (Clear); Urine Color Yellow (Yellow); Urine Culture Reflex Order REFLEXED; Urine Glucose NEGATIVE (Negative); Urine Ketones 1+ (Negative); Urine Microscopic Reflex YN ORDER UMIC; Urine Mucus Slight /HPF (None Seen); Urine Nitrite 2+ (Negative); Urine Protein TRACE (Negative); Urine RBC <5 /HPF (None Seen); Urine Urobilinogen Normal (Normal); Urine WBC 20-50 /HPF (<5)
[2025-01-26 11:42] LABS: Albumin/Globulin Ratio 1.1 (1.1-1.8); Anion Gap 12.8 mEq/L (5.0-15.0); Bilirubin Total 0.9 mg/dL (0.2-1.0); Globulin 3.6 g/dL (2.3-3.5); Potassium 3.8 mEq/L (3.5-5.1); Protein, Total 7.6 g/dL (6.4-8.2)
[2025-01-26] MEDS ORDERED: PHENAZOPYRIDINE 100MG TAB PO ONE (11:58)
[2025-01-26] MEDS ORDERED: CIPROFLOXACIN 400mg IV 400 MG/200 ML BAG IV ONE (11:58)
--- NOTE | 2025-01-26 12:25 | RAD REPORT ---
EXAMINATION: CTA CHEST PE CLINICAL INDICATION: Chest pain TECHNIQUE: 100 cc 370 Isovue administered intravenously. This examination was performed according to an angiographic protocol with 3D post-processing. This involves 3D reconstructions, MIPs, volume rendered images and/or shaded surface rendering. One or more of the following dose reduction techniqu es were used: Automated exposure control, adjustment of the mA and/or kV according to patient size, and/or iterative reconstruction. Unless otherwise specified, incidental findings do not require dedic ated imaging follow-up. [id number]. COMPARISON: No prior exam. FINDINGS: A pulmonary embolus is not seen. An aortic aneurysm not noted. No pleural effusion. No pericardial effusion. Lungs are clear. IMPRESSION: No evidence of a pulmonary embolism
--- NOTE | 2025-01-26 12:45 | RAD REPORT ---
EXAMINATION: CT ABDOMEN AND PELVIS WITH CONTRAST CLINICAL INDICATION: Abdominal pain TECHNIQUE: CT abdomen and pelvis was performed, after the administration of 100 cc Isovue-300.. Sagit lay and coronal reconstructions were obtained. One or more of the following dose reduction techniques were used: Automated exposure control, adjustment of the mA and kV according to patient si ze, and iterative reconstruction. Unless otherwise specified, incidental findings do not require dedicated imaging follow-up. [id number]. Oral contrast was not given which limits evaluation of bowel and appendix. COMPARISON: .2023 and 2015 FINDINGS: Liver, spleen, pancreas, right adrenal gland unremarkable Mild fullness left adrenal gland unchanged likely benign. No follow-up recommended. Partial right nephrectomy. No hydronephrosis. 2.6 cm left renal mass is enlarged from 2016. Measured 16 mm. Hounsfield units 16. No significant enh ancement displayed. Likely is benign. No adnexal mass. No evidence of diverticulitis.. Postsurgical changes involve the stomach. The LAP-BAND is no longer v isualized. Mild diastases rectus abdominis muscles. Normal appendix. Postsurgical changes involve the spine. Cholecystectomy : IMPRESSION: No acute abnormality displayed
--- NOTE | 2025-01-26 12:51 | ER ---
Nurse's Notes [facility] Name: Leeanne Sinclair Age: 59 yrs Sex: Female : 1965 Arrival Date: 01/26/2025 Time: 09:56 Bed 11 Private MD: Diagnosis: Nausea;UTI/ Urinary tract infection, site not specified;Acute cystitis without hematuria;Abnormal radiologic findings on diagnostic imaging of left kidney-mass Presentation: 01/26 10:23 Chief complaint: Patient states: she has had RUQ and LUQ abdominal pain with nausea and me1 diarrhea since Thursday. States she has had a UTI on and off for 3 months. "It comes right back after I finish the antibiotics.". Coronavirus screen: Vaccine status: Patient reports receiving the 2nd dose of the covid vaccine. Ebola Screen: No symptoms or risks identified at this time. Initial Sepsis Screen: Does the patient meet any 2 criteria? No. Patient's initial sepsis screen is negative. Does the patient have a suspected source of infection? No. Patient's initial sepsis screen is negative. Risk Assessment: Do you want to hurt yourself or someone else? Patient reports no desire to harm self or others. Onset of symptoms was January 23, 2025. 10:23 Method Of Arrival: Ambulatory nv1 10:23 Acuity: WILLIS 3 me1 Triage Assessment: 10:30 General: Appears uncomfortable, well groomed, well developed, well nourished, Behavior me1 is calm, cooperative, appropriate for age. Pain: Complains of pain in right upper quadrant and left upper quadrant and bilateral mid back Pain does not radiate. Pain currently is 5 out of 10 on a pain scale. Quality of pain is described as crampy, Pain began 2-3 days ago. Is continuous. EENT: No signs and/or symptoms were reported regarding the EENT system. Neuro: Level of Consciousness is awake, alert, obeys commands, Oriented to person, place, time, situation, Appropriate for age. Cardiovascular: Patient's skin is warm and dry. Respiratory: Airway is patent Respiratory effort is even, unlabored, Respiratory pattern is regular, symmetrical. GI: Abdomen is non-distended, Reports diarrhea, nausea, since Thursday. : Reports having a UTI on and off for the past 3 months. Derm: Skin is intact, is healthy with good turgor, Skin is pink, warm \\T\\ dry. Musculoskeletal: No signs and/or symptoms reported regarding the musculoskeletal system. Historical: - Allergies: 10:30 PENICILLINS; me1 - PMHx: 10:30 pulmonary embolism; Aneurysm; me1 - PSHx: 10:30 lap band; Cholecystectomy; mass removed from right kidney; back surgery x2; me1 - Immunization history:: Adult Immunizations up to date. - Infectious Disease History:: Denies. - Social history:: Smoking status: Patient denies any tobacco usage or history of. - Family history:: not pertinent. Screenin:33 [facility] ED Fall Risk Assessment (Adult) History of falling in the last 3 months, me1 including since admission No falls in past 3 months (0 pts) Confusion or Disorientation No (0 pts) Intoxicated or Sedated No (0 pts) Impaired Gait No (0 pts) Mobility Assist Device Used No (0 pt) Altered Elimination No (0 pt) Score/Fall Risk Level 0 - 2 = Low Risk Maintained a safe environment, Provided non-skid footwear, Hourly rounding (assess needs \\T\\ fall precautionary measures) done. Abuse screen: Denies threats or abuse. Nutritional screening: No deficits noted. Tuberculosis screening: No symptoms or risk factors identified. Assessment: 10:33 General: See triage assessment. me1 Vital Signs: 10:23 BP 139 / 67; Pulse 71; Resp 17; Temp 98.2; Pulse Ox 100% ; Weight 111.13 kg; Height 5 me1 ft. 7 in. ; Pain 5/10; 11:30 BP 131 / 73; Pulse 63; Resp 15; Pulse Ox 100% ; me1 12:30 BP 124 / 76; Pulse 61; Resp 14; Pulse Ox 99% ; me1 10:23 Body Mass Index 38.37 (111.13 kg, 170.18 cm) me1 10:23 Pain Scale: Adult nv1 ED Course: 10:09 Patient arrived in ED. cj3 10:10 Reza Phan MD is Attending Physician. estefani 10:15 Sari Epstein, SUSAN is Primary Nurse. me1 10:29 Inserted saline lock: 22 gauge in left antecubital area, using aseptic technique. Blood nh2 collected. Flushed with 10 mL NS. 10:30 Triage completed. me1 10:30 Arm band placed on Patient placed in an exam room. me1 10:30 First set of blood cultures drawn by me. nh2 10:33 Patient has correct armband on for positive identification. Bed in low position. Call me1 light in reach. Side rails up X2. Provided Education on: POC. Verbalized understanding.. Client placed on continuous cardiac and pulse oximetry monitoring. NIBP monitoring applied. Pulse ox on. NIBP on. 10:33 No provider procedures requiring assistance completed. me1 10:50 Second set of blood cultures drawn. nh2 11:13 Troponin High Sensitivity Sent. nh2 11:14 CBC with Diff Sent. nh2 11:14 CMP Sent. nh2 11:14 Lipase Sent. nh2 11:14 Urinalysis w/ reflexes Sent. nh2 11:52 Urine Culture Sent. me1 12:12 CT Abd/Pelvis - IV Contrast Only In Process Unspecified. EDMS 12:13 CT Chest For PE Angio In Process Unspecified. EDMS 12:50 Christopher Driver MD is Referral Physician. estefani 14:15 IV discontinued, intact, bleeding controlled, No redness/swelling at site. Pressure ss dressing applied. Administered Medications: 11:07 Drug: Famotidine IVP 20 mg IVP once; dilute with 10 mL 0.9% NaCl; give over 2 minutes me1 Route: IVP; Site: left antecubital; 13:02 Follow up: Response: No adverse reaction me1 11:07 Drug: Ondansetron IVP 4 mg IVP once; over 2 minutes Route: IVP; Site: left antecubital; me1 13:02 Follow up: Response: No adverse reaction; Nausea is decreased me1 11:07 Drug: NS 0.9% IV 1000 ml IV at 1 bolus Per protocol; to be given as a bolus over 60 me1 minutes Route: IV; Rate: 1 bolus; Site: left antecubital; 13:02 Follow up: Response: No adverse reaction; IV Status: Completed infusion; IV Intake: me1 1000ml 11:07 Drug: NS 0.9% IV 1000 ml IV at 1 bolus Per protocol; to be given as a bolus over 60 me1 minutes Route: IV; Rate: 1 bolus; Site: left antecubital; 13:02 Follow up: IV Status: Completed infusion; IV Intake: 1000ml me1 11:07 Drug: Rocephin IV 2 grams IV at per protocol once; Given slow IV push per pharmarcy me1 instructions Route: IV; Rate: per protocol; Site: left antecubital; 11:52 Follow up: Response: No adverse reaction; IV Status: Completed infusion; IV Intake: me1 100ml 12:03 Drug: Ciprofloxacin IVPB 400 mg 200 ml IVPB once over 60 mins Volume: 200 ml; Route: me1 IVPB; Infused Over: 60 mins; Site: left antecubital; 14:15 Follow up: IV Status: Completed infusion 12:03 Drug: Phenazopyridine PO 200 mg PO once Route: PO; me1 13:02 Follow up: Response: No adverse reaction me1 Medication: 10:33 VIS not applicable for this client. me1 Intake: 11:52 IV: 100ml; Total: 100ml. me1 13:02 IV: 1000ml; Total: 1100ml. me1 13:02 IV: 1000ml; Total: 2100ml. me1 Outcome: 12:50 Discharge ordered by . estefani 14:15 Discharged to home ambulatory, 14:15 Condition: good 14:15 Discharge instructions given to patient, Instructed on discharge instructions, follow up and referral plans. medication usage, Demonstrated understanding of instructions, follow-up care, medications, Prescriptions given X 4, 14:16 Patient left the ED. Signatures: Dispatcher [employer] Reza Garcia MD MD cha Blanchard, Shelby RN RN Sari Epstein, SUSAN RN me1 Clarence Quintero, Nasreen Morales 3
--- NOTE | 2025-01-26 12:51 | EDPHYS ---
Physician Documentation [facility] Name: Leeanne Sinclair Age: 59 yrs Sex: Female : 1965 Arrival Date: 01/26/2025 Time: 09:56 Bed 11 Private MD: ESAU Physician Reza Phan HPI: 01/26 10:53 This 59 yrs old Female presents to ER via Ambulatory with complaints of estefani Abdominal Pain, Urinary Problem. 10:53 The patient presents with abdominal pain in the upper abdomen, in the lower abdomen. estefani Onset: The symptoms/episode began/occurred 3 day(s) ago. The patient complains of pain in the left mid back and right mid back. The pain does not radiate. Modifying factors: The symptoms are alleviated by nothing. the symptoms are aggravated by nothing. The patient presents with urinary symptoms, frequency, hesitancy, urgency. Modifying factors: The symptoms are alleviated by nothing, the symptoms are aggravated by nothing. Associated signs and symptoms: The patient has no apparent associated signs or symptoms. Severity of symptoms: At their worst the symptoms were moderate, in the emergency department the symptoms are unchanged. Historical: - Allergies: 10:30 PENICILLINS; me1 - PMHx: 10:30 pulmonary embolism; Aneurysm; me1 - PSHx: 10:30 lap band; Cholecystectomy; mass removed from right kidney; back surgery x2; me1 - Immunization history:: Adult Immunizations up to date. - Infectious Disease History:: Denies. - Social history:: Smoking status: Patient denies any tobacco usage or history of. - Family history:: not pertinent. ROS: 10:53 Constitutional: Negative for fever, chills, and weight loss, Eyes: Negative for injury, estefani pain, redness, and discharge, ENT: Negative for injury, pain, and discharge, Neck: Negative for injury, pain, and swelling, Cardiovascular: Negative for chest pain, palpitations, and edema, Respiratory: Negative for shortness of breath, cough, wheezing, and pleuritic chest pain, MS/Extremity: Negative for injury and deformity, Skin: Negative for injury, rash, and discoloration, Neuro: Negative for headache, weakness, numbness, tingling, and seizure, Psych: Negative for depression, anxiety, suicide ideation, homicidal ideation, and hallucinations, Allergy/Immunology: Negative for hives, rash, and allergies, Endocrine: Negative for neck swelling, polydipsia, polyuria, polyphagia, and marked weight changes, Hematologic/Lymphatic: Negative for swollen nodes, abnormal bleeding, and unusual bruising, 10:53 Abdomen/GI: Positive for abdominal pain, nausea, 10:53 Back: Positive for flank pain, on the left, 10:53 : Positive for urinary symptoms, pelvic pain, burning with urination, difficulty urinating, Exam: 10:53 Constitutional: This is a well developed, well nourished patient who is awake, alert, estefani and in no acute distress. Head/Face: Normocephalic, atraumatic. Eyes: Pupils equal round and reactive to light, extra-ocular motions intact. Lids and lashes normal. Conjunctiva and sclera are non-icteric and not injected. Cornea within normal limits. Periorbital areas with no swelling, redness, or edema. ENT: Nares patent. No nasal discharge, no septal abnormalities noted. Tympanic membranes are normal and external auditory canals are clear. Oropharynx with no redness, swelling, or masses, exudates, or evidence of obstruction, uvula midline. Mucous membranes moist. Neck: Trachea midline, no thyromegaly or masses palpated, and no cervical lymphadenopathy. Supple, full range of motion without nuchal rigidity, or vertebral point tenderness. No Meningismus. Chest/axilla: Normal chest wall appearance and motion. Nontender with no deformity. No lesions are appreciated. Cardiovascular: Regular rate and rhythm with a normal S1 and S2. No gallops, murmurs, or rubs. Normal PMI, no JVD. No pulse deficits. Respiratory: Lungs have equal breath sounds bilaterally, clear to auscultation and percussion. No rales, rhonchi or wheezes noted. No increased work of breathing, no retractions or nasal flaring. Abdomen/GI: Soft, non-tender, with normal bowel sounds. No distension or tympany. No guarding or rebound. No evidence of tenderness throughout. Back: No spinal tenderness. No costovertebral tenderness. Full range of motion. Skin: Warm, dry with normal turgor. Normal color with no rashes, no lesions, and no evidence of cellulitis. MS/ Extremity: Pulses equal, no cyanosis. Neurovascular intact. Full, normal range of motion., bilateral aka Neuro: Awake and alert, GCS 15, oriented to person, place, time, and situation. Cranial nerves II-XII grossly intact. Motor strength 5/5 in all extremities. Sensory grossly intact. Cerebellar exam normal. Normal gait. Psych: Awake, alert, with orientation to person, place and time. Behavior, mood, and affect are within normal limits. 10:53 Abdomen/GI: Inspection: abdomen appears normal, Bowel sounds: normal, Palpation: abdomen is soft and non-tender, Liver: no appreciated palpable abnormalities, Hernia: not appreciated, 11:13 ECG was reviewed by the Attending Physician. [facility] Vital Signs: 10:23 BP 139 / 67; Pulse 71; Resp 17; Temp 98.2; Pulse Ox 100% ; Weight 111.13 kg; Height 5 me1 ft. 7 in. ; Pain 5/10; 11:30 BP 131 / 73; Pulse 63; Resp 15; Pulse Ox 100% ; me1 12:30 BP 124 / 76; Pulse 61; Resp 14; Pulse Ox 99% ; me1 10:23 Body Mass Index 38.37 (111.13 kg, 170.18 cm) me1 10:23 Pain Scale: Adult me1 MDM: 10:10 Medical Screening Exam initiated [facility] 10:56 Differential diagnosis: nephrolithiasis, pyelonephritis, UTI, diverticulitis, estefani pancreatitis, nonspecific abdominal pain, urinary tract infection, diverticulitis, gastritis, non-specific abd pain, pancreatitis, Peptic Ulcer Disease. Data reviewed: vital signs, nurses notes, lab test result(s), EKG, radiologic studies, CT scan, plain films. Consideration of Admission/Observation Patient was admitted/placed on observation. Escalation of care including admission/observation considered. I considered the following discharge prescriptions or medication management in the emergency department Medications were administered in the Emergency Department. See MAR. Independent interpretation of the following test(s) in the Emergency Department EKG: See my EKG interpretation above. Test considered but Not performed: Ultrasound no abd usg. Historians other than the Patient: pt well in formed, dr mcpherson called ahead. Care significantly affected by the following chronic conditions: Obesity, pe, aneurysm. Counseling: I had a detailed discussion with the patient and/or guardian regarding the historical points, exam findings, and any diagnostic results supporting the discharge/admit diagnosis, lab results, radiology results, the need for outpatient follow up, for definitive care, an mail inserter. 01/26 10:25 Order name: CBC with Diff; Complete Time: 11:39 [facility] 01/26 10:25 Order name: CMP; Complete Time: 11:58 [facility] 01/26 10:25 Order name: Lipase; Complete Time: 11:58 [facility] 01/26 10:25 Order name: Urinalysis w/ reflexes; Complete Time: 11:39 [facility] 01/26 10:25 Order name: Blood Culture Adult (2) [facility] 01/26 10:41 Order name: Troponin High Sensitivity; Complete Time: 11:58 [facility] 01/26 11:33 Order name: Urine Culture [facility] 01/26 10:25 Order name: CT Abd/Pelvis - IV Contrast Only; Complete Time: 12:49 [facility] 01/26 10:41 Order name: CT Chest For PE Angio; Complete Time: 12:30 [facility] 01/26 10:41 Order name: EKG; Complete Time: 10:41 [facility] 01/26 10:25 Order name: IV Saline Lock; Complete Time: 11:14 [facility] 01/26 10:25 Order name: Labs collected and sent; Complete Time: 11:14 [facility] 01/26 10:41 Order name: EKG - Nurse/Tech; Complete Time: 11:13 [facility] EC:13 Rate is 63 beats/min. Rhythm is regular. QRS [place] is Normal. [place] interval is normal. QRS estefani interval is normal. QT interval is normal. No Q waves. T waves are Normal. No ST changes noted. Clinical impression: Normal ECG and No evidence of ischemia. Interpreted by me. Reviewed by me. Administered Medications: 11:07 Drug: Famotidine IVP 20 mg IVP once; dilute with 10 mL 0.9% NaCl; give over 2 minutes me1 Route: IVP; Site: left antecubital; 13:02 Follow up: Response: No adverse reaction me1 11:07 Drug: Ondansetron IVP 4 mg IVP once; over 2 minutes Route: IVP; Site: left antecubital; [facility] 13:02 Follow up: Response: No adverse reaction; Nausea is decreased me1 11:07 Drug: NS 0.9% IV 1000 ml IV at 1 bolus Per protocol; to be given as a bolus over 60 me1 minutes Route: IV; Rate: 1 bolus; Site: left antecubital; 13:02 Follow up: Response: No adverse reaction; IV Status: Completed infusion; IV Intake: me1 1000ml 11:07 Drug: NS 0.9% IV 1000 ml IV at 1 bolus Per protocol; to be given as a bolus over 60 me1 minutes Route: IV; Rate: 1 bolus; Site: left antecubital; 13:02 Follow up: IV Status: Completed infusion; IV Intake: 1000ml me1 11:07 Drug: Rocephin IV 2 grams IV at per protocol once; Given slow IV push per pharmarcy me1 instructions Route: IV; Rate: per protocol; Site: left antecubital; 11:52 Follow up: Response: No adverse reaction; IV Status: Completed infusion; IV Intake: me1 100ml 12:03 Drug: Ciprofloxacin IVPB 400 mg 200 ml IVPB once over 60 mins Volume: 200 ml; Route: me1 IVPB; Infused Over: 60 mins; Site: left antecubital; 14:15 Follow up: IV Status: Completed infusion ss 12:03 Drug: Phenazopyridine PO 200 mg PO once Route: PO; me1 13:02 Follow up: Response: No adverse reaction me1 Disposition Summary: 01/26/25 12:50 Discharge Ordered Notes: Location: Home estefani Problem: new estefani Symptoms: have improved estefani Condition: Stable estefani Diagnosis - Nausea estefani - UTI/ Urinary tract infection, site not specified estefani - Acute cystitis without hematuria estefani - Abnormal radiologic findings on diagnostic imaging of left kidney - mass estefani Followup: estefani - With: Private Physician - When: 2 - 3 days - Reason: Recheck today's complaints, Continuance of care, Re-evaluation by your physician Followup: estefani - With: Christopher Mcpherson MD - When: 2 - 3 days - Reason: Recheck today's complaints, Re-evaluation by your physician Discharge Instructions: - Discharge Summary Sheet estefani - Dysuria estefani - Nausea and Vomiting, Adult estefani - Nausea, Adult estefani - Urinary Tract Infection, Adult estefani - Urinary Tract Infection, Adult, [id number] estefani Forms: - Medication Reconciliation Form estefani - Antibiotic Education estefani - Prescription Opioid Use estefani - Patient Portal Instructions estefani - Leadership Thank You Letter [facility] Prescriptions: - cefdinir 300 mg Oral capsule - take 1 capsule ORAL route 2 times per day for 7 days; 14 capsule; Refills: 0, estefani Product Selection Permitted - ondansetron 4 mg Oral Tablet,disintegrating - take 1 tablet ORAL route every 8 hours prn; 20 tablet; Refills: 0, Product estefani Selection Permitted - Cipro 250 mg Oral tablet - take 1 tablet ORAL route every 12 hours; 14 tablet; Refills: 0, Product estefani Selection Permitted - Pyridium 200 mg Oral Tablet - take 1 tablet ORAL route every 8 hours for 3 days; 9 tablet; Refills: 0, [facility] Product Selection Permitted Signatures: Dispatcher [employer] EDReza Osorio MD MD cha Eddleman, Michelle, RN RN me1 Bonny Beaulieu RN ss Corrections: (The following items were deleted from the chart) 10:26 10:26 CBC+H.LAB.BRZ ordered. EDMS EDMS 10: 10:26 COMPREHENSIVE METABOLIC PANEL+C.LAB.BRZ ordered. EDMS EDMS 10: 10:26 LIPASE+C.LAB.BRZ ordered. EDMS EDMS 10:26 10:26 Urinalysis+U.LAB.BRZ ordered. EDMS EDMS 10:26 10:26 BLOOD CULTURE*+BA.LAB.BRZ ordered. EDMS EDMS 10:26 10:26 Abdomen Pelvis W Con+CT.RAD.BRZ ordered. EDMS EDMS
[2025-01-26 14:44] VITALS: TEMP 98.2
[2025-01-26 14:48] VITALS: BP 124/76; O2SAT 99
--- NOTE | 2025-01-27 16:31 | EKG ---
Test Date: 2025-01-26 Test Time: 11:09:32 Forming Department Supervisor: ELIZABETH MEASUREMENT RESULTS: Intervals: Rate: 63 MI: 194 QRSD: 74 QT: 398 QTc: 407 [place]le: P: 50 MI: 194 QRS: 35 T: 47 INTERPRETIVE STATEMENTS: Normal sinus rhythm Normal ECG Compared to ECG 07/03/2010 16:15:27 Sinus bradycardia no longer present Electronically Signed On 01-27-25 16:30:15 CDT by Wesley Morgan
== END 2025-01-26 14:16 | disposition home or self-care (01) ==
LOC: ER 09:56
DX: N39.0 Urinary tract infection, site not specified (principal); N28.89 Other specified disorders of kidney and ureter
CPT/HCPCS: 96365; 96367; 93005; 87040; 87088; 85025; 81001; 87086; 36415; 84484; 83690; 80053; 71275; 74177; 96375; 99284; 96366; Q9967; J2405; J0696; J0744; J7030

== ENCOUNTER 2025-06-16 11:50 | Inpatient (IN) | payer OTHER ==
[2025-06-16 13:05] LABS: Absolute Lymphocytes (CBC) 1.4 K/uL (0.7-4.9); Hematocrit 48.0 % (36.0-45.0); Hemoglobin 16.2 g/dL (12.0-15.0); MCH 32.7 pg (27.0-35.0); MCHC 33.7 g/dL (32.0-36.0); MCV 97.0 fL (80-100); MPV 8.1 fL (7.6-11.3); Nucleated RBC Absolute Count 0.0 (0-0); Nucleated Red Blood Cells % 0.1 % (0-0); RBC Red Blood Cell Count 4.95 M/uL (3.86-4.86); White Blood Count 8.30 thou/uL (4.3-10.9)
[2025-06-16 13:08] LABS: Sqamous Epithelial <5 /HPF (None Seen); Urine Crystals Unidentified Few /HPF (None Seen); Urine Culture Reflex Order NOT NEEDED; Urine Microscopic Reflex YN ORDER UMIC; Urine WBC Clump Rare /HPF (None Seen)
[2025-06-16 13:25] LABS: ALT/SGPT 32.0 U/L (13-56); AST/SGOT 21.0 U/L (15-37); Albumin 4.2 g/dL (3.4-5.0); Albumin/Globulin Ratio 1.3 (1.1-1.8); Alkaline Phosphatase 106.0 U/L (45-117); Anion Gap 9.8 mEq/L (5.0-15.0); BUN Blood Urea Nitrogen 16.0 mg/dL (7-18); Globulin 3.2 g/dL (2.3-3.5); Glucose Level 93.0 mg/dL (74-106); Potassium 3.8 mEq/L (3.5-5.1)
--- NOTE | 2025-06-16 13:36 | ER ---
Nurse's Notes [facility] [place] Name: Leeanne Sinclair Age: 60 yrs Sex: Female : 1965 Arrival Date: 06/16/2025 Time: 11:50 Bed 14 Private MD: Diagnosis: UTI/ Urinary tract infection, site not specified-MRSA;Elevated blood-pressure reading, without diagnosis of hypertension;Dysuria;Low back pain Presentation: 06/16 12:17 Chief complaint: Patient states: Started having dysuria since Thursday. Started on ll1 antibiotics, just not helping. Sent in for IV antibiotics by Dr. Driver and possible admission. Coronavirus screen: Client denies travel out of the [place] in the last 14 days. At this time, the client does not indicate any symptoms associated with coronavirus-19. Ebola Screen: Patient denies travel to an Ebola-affected area in the 21 days before illness onset. Initial Sepsis Screen: Does the patient meet any 2 criteria? No. Patient's initial sepsis screen is negative. Does the patient have a suspected source of infection? No. Patient's initial sepsis screen is negative. Risk Assessment: Do you want to hurt yourself or someone else? Patient reports no desire to harm self or others. Onset of symptoms was June 13, 2025. 12:17 Method Of Arrival: Ambulatory ll1 12:17 Acuity: WILLIS 3 ll1 Triage Assessment: 12:17 General: Appears uncomfortable, Behavior is calm, cooperative, appropriate for age. ll1 Pain: Complains of pain in abdomen Pain radiates to back. GI: Reports lower abdominal pain, nausea. : Reports burning with urination, pain with urination. Historical: - Allergies: 12:00 PENICILLINS; ll1 - PMHx: 12:00 Aneurysm; Pulmonary Embolism; ll1 - PSHx: 12:00 Back surgery x2; Cholecystectomy; lap band; mass removed from right kidney; ll1 - Immunization history:: Adult Immunizations up to date. - Social history:: Smoking status: Patient denies any tobacco usage or history of. Screenin:05 [facility] ED Fall Risk Assessment (Adult) History of falling in the last 3 months, jp5 including since admission No falls in past 3 months (0 pts) Confusion or Disorientation No (0 pts) Intoxicated or Sedated No (0 pts) Impaired Gait No (0 pts) Mobility Assist Device Used Yes (1 pt) Altered Elimination No (0 pt) Score/Fall Risk Level 0 - 2 = Low Risk Oriented to surroundings, Maintained a safe environment, Educated pt \T\ family on fall prevention, incl call for assistance when getting out of bed, Assessed \T\ reinforced patient's understanding of fall precautions, Provided non-skid footwear, Hourly rounding (assess needs \T\ fall precautionary measures) done, Used ambulatory aids as needed (educated on \T\ assisted with). Abuse screen: Denies threats or abuse. Denies injuries from another. Nutritional screening: No deficits noted. Tuberculosis screening: No symptoms or risk factors identified. Assessment: 12:00 Reassessment: Patient and/or family updated on plan of care and expected duration. Pain ll1 level reassessed. Dr. Fuller pulled her back from the lobby for assessment. 13:05 General: Appears in no apparent distress. comfortable, Behavior is calm, cooperative, jp5 appropriate for age, quiet. Neuro: No deficits noted. Cardiovascular: No deficits noted. Respiratory: No deficits noted. GI: No deficits noted. : Reports burning with urination. 14:05 Reassessment: Patient appears in no apparent distress at this time. No changes from jp5 previously documented assessment. Patient and/or family updated on plan of care and expected duration. Pain level reassessed. Patient is alert, oriented x 3, equal unlabored respirations, skin warm/dry/pink. Patient denies pain at this time. 15:05 Reassessment: Patient appears in no apparent distress at this time. No changes from jp5 previously documented assessment. Patient and/or family updated on plan of care and expected duration. Pain level reassessed. Patient is alert, oriented x 3, equal unlabored respirations, skin warm/dry/pink. Patient denies pain at this time. Vital Signs: 12:17 BP 136 / 77; Pulse 80; Resp 17; Temp 97.8; Pulse Ox 100% ; Weight 112.49 kg; Height 5 ll1 ft. 7 in. ; Pain 8/10; 13:35 BP 140 / 76; Pulse 67; Resp 16; Pulse Ox 100% on R/A; jp5 14:44 BP 143 / 80; Pulse 63; Resp 18; Temp 97.9(O); Pulse Ox 100% on R/A; jp5 15:25 BP 146 / 69; Pulse 59; Resp 16; Temp 97.8(O); Pulse Ox 100% on R/A; Pain 0/10; jp5 12:17 Body Mass Index 38.84 (112.49 kg, 170.18 cm) ll1 12:17 Pain Scale: Adult ll1 15:25 Pain Scale: Adult jp5 ED Course: 11:53 Patient arrived in ED. im 11:54 Rodríguez Pinedo FNP-C is PHCP. dr5 11:54 Elmo Fuller DO is Attending Physician. dr5 12:00 Arm band placed on. ll1 12:19 Triage completed. ll1 12:39 Patient placed in an exam room, on a stretcher. ll1 12:43 Christen Ellis, SUSAN is Primary Nurse. jp5 13:02 Initial lab(s) drawn, by labor law professor, sent to lab. Inserted saline lock: 20 gauge in right ts3 antecubital area, using aseptic technique. Blood collected. Flushed with 10 mL NS. 13:03 Urine collected: clean catch specimen, sent to lab. ts3 13:05 No provider procedures requiring assistance completed. jp5 13:35 Neeraj Driver MD is Hospitalizing Provider. ms3 13:35 First set of blood cultures drawn by me. jp5 13:43 Blood Culture Adult (2) Sent. jp5 13:50 Second set of blood cultures drawn by me. jp5 14:51 Report given to SBAR and yellow sheet faxed/tubed to 4th floor. SUSAN Parrish confirmed jp5 received. Administered Medications: 13:54 Drug: vancoMYCIN IVPB 1 grams IVPB once over 2 hrs Route: IVPB; Infused Over: 2 hrs; jp5 Site: right antecubital; Medication: 13:05 VIS not applicable for this client. jp5 Outcome: 13:36 Decision to Hospitalize by Provider. ms3 15:36 Patient left the ED. cp Signatures: Reza Rowe PA-C PA-C cp Lewis, Lynsay, RN RN ll1 Elmo Fuller DO DO ms3 Poly Parker im Christen Ellis RN RN jp5 Rodríguez Pinedo FNP-C LIFE UNDERWRITER-Cdr5 Parul Mccarthy ts3
--- NOTE | 2025-06-16 13:36 | EDPHYS ---
Physician Documentation [facility] Name: Leeanne Sinclair Age: 60 yrs Sex: Female : 1965 Arrival Date: 06/16/2025 Time: 11:50 Bed 14 Private MD: ED Physician Elmo Fuller HPI: 06/16 14:28 This 60 yrs old Female presents to ER via Ambulatory with complaints of Urinary Problem.ms3 14:28 60-year-old female with past medical history of aneurysm, pulmonary embolism presents ms3 to the emergency department for dysuria and not feeling well. Patient states she was seen in urgent care on Thursday and was called today as she has MRSA in her urine. Patient notes to have been having diarrhea, back pain, headache, fevers, chills. Patient states her pain is an 8/10. She denies any alleviating or inciting factors.. Historical: - Allergies: 12:00 PENICILLINS; ll1 - PMHx: 12:00 Aneurysm; Pulmonary Embolism; ll1 - PSHx: 12:00 Back surgery x2; Cholecystectomy; lap band; mass removed from right kidney; ll1 - Immunization history:: Adult Immunizations up to date. - Social history:: Smoking status: Patient denies any tobacco usage or history of. ROS: 14:28 Constitutional: Negative for fever, and chills. Cardiovascular: Negative for chest ms3 pain, and palpitations. Respiratory: Negative for shortness of breath, cough, wheezing, and pleuritic chest pain, Abdomen/GI: Negative for abdominal pain, nausea, vomiting, diarrhea, and constipation, MS/Extremity: Negative for injury and deformity, Skin: Negative for injury, rash, and discoloration, 14:28 : Positive for urinary symptoms, Exam: 14:28 Constitutional: This is a well developed, well nourished patient who is awake, alert, ms3 and in no acute distress. Chest/axilla: Normal chest wall appearance and motion. Nontender with no deformity. Cardiovascular: Regular rate and rhythm with a normal S1 and S2. No gallops, murmurs, or rubs. Normal PMI, no JVD. No pulse deficits. Respiratory: Lungs have equal breath sounds bilaterally, clear to auscultation and percussion. No rales, rhonchi or wheezes noted. No increased work of breathing, no retractions or nasal flaring. Abdomen/GI: Soft, non-tender, with normal bowel sounds. No distension or tympany. No guarding or rebound. No evidence of tenderness throughout. Skin: Warm, dry with normal turgor. Normal color with no rashes, no lesions, and no evidence of cellulitis. MS/ Extremity: Pulses equal, no cyanosis. Neurovascular intact. Full, normal range of motion. Vital Signs: 12:17 BP 136 / 77; Pulse 80; Resp 17; Temp 97.8; Pulse Ox 100% ; Weight 112.49 kg; Height 5 ll1 ft. 7 in. ; Pain 8/10; 13:35 BP 140 / 76; Pulse 67; Resp 16; Pulse Ox 100% on R/A; jp5 14:44 BP 143 / 80; Pulse 63; Resp 18; Temp 97.9(O); Pulse Ox 100% on R/A; jp5 15:25 BP 146 / 69; Pulse 59; Resp 16; Temp 97.8(O); Pulse Ox 100% on R/A; Pain 0/10; jp5 12:17 Body Mass Index 38.84 (112.49 kg, 170.18 cm) ll1 12:17 Pain Scale: Adult ll1 15:25 Pain Scale: Adult jp5 MDM: 11:54 Medical Screening Exam initiated dr5 11:56 Medical Screening Exam initiated ms3 14:28 Differential diagnosis: UTI versus lower abdominal pain versus viral illness. Data ms3 reviewed: vital signs, nurses notes, lab test result(s), and as a result, I will admit patient. Consideration of Admission/Observation Patient was admitted/placed on observation. Management of patient was discussed with the following: Hospitalist: Dr. Driver. I considered the following discharge prescriptions or medication management in the emergency department Medications were administered in the Emergency Department. See MAR. Counseling: I had a detailed discussion with the patient and/or guardian regarding the historical points, exam findings, and any diagnostic results supporting the discharge/admit diagnosis, lab results, the need for further work-up and treatment in the hospital. ED course: Discussed case with Dr. Driver and patient. Patient understands agrees with plan. All questions were answered. 06/16 11:54 Order name: UA Rfx Seth Cult if indicated; Complete Time: 13:28 dr5 06/16 11:59 Order name: CBC with Diff; Complete Time: 13:28 ms3 06/16 11:59 Order name: CMP; Complete Time: 13:28 ms3 06/16 13:30 Order name: Blood Culture Adult (2) ms3 06/16 13:51 Order name: CBC with Automated Diff EDMS Administered Medications: 13:54 Drug: vancoMYCIN IVPB 1 grams IVPB once over 2 hrs Route: IVPB; Infused Over: 2 hrs; jp5 Site: right antecubital; Disposition Summary: 06/16/25 13:36 Hospitalization Ordered Notes: Hospitalization Status: Observation ms3 Provider: Neeraj Driver ms3 Location: Telemetry/MedSurg (observation) ms3 Condition: Stable ms3 Problem: new ms3 Symptoms: are unchanged ms3 Bed/Room Type: Standard ms3 Room Assignment: 423(06/16/25 14:12) eb Diagnosis - UTI/ Urinary tract infection, site not specified - MRSA ms3 - Elevated blood-pressure reading, without diagnosis of hypertension ms3 - Dysuria ms3 - Low back pain ms3 Forms: - Medication Reconciliation Form ms3 - SBAR form ms3 - Leadership Thank You Letter ms3 Signatures: Dispatcher [employer] EDMS Neetu Johnson Lynsay, RN RN ll1 Elmo Fuller DO DO ms3 Christen Ellis, RN RN jp5 Rodríguez Pinedo, RV SERVICER-C RV SERVICER-Cdr5 Corrections: (The following items were deleted from the chart) 11:59 11:59 CBC+H.LAB.BRZ ordered. EDMS EDMS 11:59 11:59 COMPREHENSIVE METABOLIC PANEL+C.LAB.BRZ ordered. EDMS EDMS 13:30 13:30 BLOOD CULTURE*+BA.LAB.BRZ ordered. EDMS EDMS 14:12 13:36 ms3 eb
[2025-06-16] MEDS ORDERED: ONDANSETRON 4 MG/2 ML VIAL IV PRN (13:47)
[2025-06-16] MEDS ORDERED: NA CHLORIDE 0.9% 250 ML ONE (13:48)
[2025-06-16] MEDS ORDERED: VANCOMYCIN 1 GM/VIAL ONE (13:49)
[2025-06-16] MEDS: VANCOMYCIN 1 GM in NA CHLORIDE 0.9% 250 ML IVPB ONE (14:30)
[2025-06-16 15:42] VITALS: O2SAT 100
[2025-06-16 15:46] VITALS: BMI 38.8
[2025-06-16] MEDS: ENOXAPARIN 40 MG/0.4 ML SQ SCH (17:12)
[2025-06-16] MEDS: Mupirocin NASAL 2 APPL/1 GM TUBE NAS SCH (20:32)
--- NOTE | 2025-06-17 04:11 | RAD REPORT ---
EXAMINATION: Chest Single View CLINICAL HISTORY: PICC placement COMPARISON: January 26, 2025 CT Chest Angiography With Contrast. No Prior Images. FINDINGS: The lungs are clear. There is no pleural effusion or pneumothorax. The cardiomediastinal silhouette i s without acute process. The osseous structures are without acute process. Right PICC line catheter tip terminates over the cavoatrial junction. IMPRESSION: 1. No acute process. 2. PICC line placement. RECOMMENDATIONS: Electronically signed by: Piter Pang MD 06/17/2025 03:30 AM CDT Due to temporary technical issues with the [employer] reporting system, reports are being sawyer d by the in-house radiologist without review as a courtesy to ensure prompt reporting. The interpreting radiologist is fully responsible for the content of the report. Transcribed Date/Time: 06/17/2025 4:11 AM
[2025-06-17] MEDS: PREGABALIN 50 MG CAP PO SCH (09:50)
[2025-06-17] MEDS: FAMOTIDINE 20 MG TAB PO SCH (09:50)
[2025-06-17] MEDS: ONDANSETRON 4 MG/2 ML VIAL IV PRN (09:55)
[2025-06-17] MEDS: ACETAMINOPHEN 500 MG TAB PO PRN (09:55)
--- NOTE | 2025-06-17 10:05 | HP ---
Date of Admission: 06/17/2025 Chief Complaint: Burning on urination, nausea, feeling hot and cold. History Of Present Illness: This is a 60-year-old very pleasant female patient who sees urologist in [place] for her recurrent urinary tract infection, and recently, she had some urodynamic studies done over a week ago and she will be following up with her urologist for followup and further intervention on it, but meanwhile on Thursday of this week, she went to [facility] here in town with complaints of burning sensation on urination associated with nausea and feeling hot and cold. She had urinalysis and urine culture done at the [facility] and she was sent home with empiric antibiotic, cefdinir, and yesterday, she was contacted by Urgent Care as her urine culture result came back growing MRSA and she was prescribed doxycycline. After that, patient contacted me and informed me that she is not feeling good at all. If at all, her symptoms are getting worse over period of last few days in spite of taking oral antibiotic and she really did not feel comfortable staying at home with all these worsening symptoms, so she was requested to come to emergency room as she wanted to get admitted to the hospital for IV antibiotics, and I did call emergency room physician yesterday, details were discussed with him, and after patient was evaluated, she was admitted to the hospital. I saw her this morning. She denies any blood in her urine. Allergies: TO PENICILLIN CAUSING RASH AND SULFA CAUSING NAUSEA AND VOMITING. Medications: Pregabalin 200 mg 2 times a day, paroxetine 20 mg daily. The patient takes Folbic 1 tablet by mouth daily, levothyroxine 25 mcg by mouth daily, vitamin D3 5000 units daily. Review of Systems: BRACELET [employer]KER NOVELTY: Significant for headache in last few days. GI: Significant for nausea. Constitutional: Significant for feeling hot and cold. Genitourinary: Significant for burning on urination. All other systems reviewed and negative. Past Medical History: Significant for hypothyroidism, impaired fasting glucose, secondary hyperparathyroidism, hypertension, hyperlipidemia, kidney cancer, compression fracture of lumbar spine, vitamin B12 deficiency and folic acid deficiency, anxiety, and vitamin D deficiency. Past Surgical History: Significant for gastric band surgery with removal of gastric band on 06/23/2024, cholecystectomy on 06/23/2024, partial right-sided nephrectomy on April 21, 2023, tubal ligation, back surgery, liposuction. Family History: Father has osteoarthritis, asthma, hyperlipidemia, hypertension. Mother has osteoarthritis, diabetes, hypertension, hyperlipidemia. Brother has diabetes mellitus, hypertension, hyperlipidemia. Social History: Negative for smoking. Use of alcohol rarely. She uses a glass of wine. Physical Examination: Vital Signs: Temperature 98.1, pulse 69, respiratory rate 17, blood pressure 141/67, oxygen saturation 95%. Height 5 feet 7 inches, weight 248 pounds. General: Awake, alert, oriented, not in distress. HEENT: Head atraumatic, normocephalic. Conjunctivae nonerythematous. Sclerae white. Mouth, no thrush or edema noted. Ears/Nose, no mass, lesion, discharge noted. Neck: Supple. No JVD, lymph nodes, bruit, thyromegaly noted. Lungs: Bilateral good equal air entry. Clear to auscultation. No rhonchi. No rales. Heart: Normal heart sounds, no murmur or gallop. Abdomen: Soft, bowel sounds normal. No guarding, rigidity, tenderness, mass, hepatosplenomegaly, distention, or bruit noted. Extremities: No leg edema. No calf tenderness. Skin: No rash, ulcer, cellulitis. Lymphatics: No lymph node enlargement in neck, supraclavicular, infraclavicular region. Neuro: No focal neurological deficit. Chest: Unremarkable. External Genitalia: Deferred. Rectal: Deferred. Laboratory Data: Yesterday, WBC 8.3, hemoglobin 16.2, platelets 259. Sodium 136, potassium 3.8, chloride 101, bicarb 29, BUN 16, creatinine 1.24, glucose 93. Liver function tests unremarkable. Urinalysis done in the emergency room was normal except appearance was turbid. I have reviewed urine culture result that she has done at [facility] growing MRSA and this was sensitive to vancomycin, tetracycline, and sulfa drugs. Impression: 1. Urinary tract infection, organism methicillin-resistant Staphylococcus aureus. 2. Hypertension. 3. Hyperlipidemia. 4. Hypothyroidism. 5. Impaired fasting glucose. 6. Vitamin B12 deficiency. 7. Folic acid deficiency. 8. Anxiety. 9. Vitamin D deficiency. 10. Chronic kidney disease stage 3A. Plan: We will go ahead and admit the patient to hospital for further evaluation and management of this problem. The patient is appropriate for inpatient and is expected to spend 2 midnights in hospital. We will consult pharmacy to manage vancomycin dosing and start the patient on vancomycin for urinary tract infection with organism MRSA. PICC line was ordered and social service consultation was ordered to help make arrangements for home IV antibiotic therapy, home health care for home health nurse to assist with IV antibiotic therapy and blood test monitoring. Lovenox was ordered for DVT prophylaxis. The patient was encouraged to continue to follow up with her urologist for this recurrent urinary tract infection problem. The patient has signs and symptoms of gastroesophageal reflux disease, which is not well controlled with osjo-lao-clhvufy medications. I will go ahead and start her on famotidine 20 mg 2 times a day. We will see how she responds to that. For chronic kidney disease stage 3A, no need for further intervention except monitoring and she was encouraged to drink 60 to 80 ounce of water daily. Avoid nephrotoxic medications like Aleve, Motrin, ibuprofen, etc. On her phone through her patient portal, I reviewed multiple prior labs and her creatinine is ranging anywhere in range of 1.15 to 1.4, and she was made aware of that this abnormality. The patient will need to take 10 days of this antibiotic therapy. Her home medications will be continued including paroxetine for anxiety, depression and pregabalin that she takes. Total time spent 70 minutes including communication with the patient prior to admission, communication with the emergency room physician, review of last office visit record from 05/09/2025, review of emergency room visit record, and performing today's evaluation and management and review of test results on her patient portal today. GRZEGORZ/NAGA Voice ID: [id number] MTDD
[2025-06-17] MEDS: VANCOMYCIN 2 GM in NA CHLORIDE 0.9% 500 ML IVPB SCH (13:10)
--- NOTE | 2025-06-18 10:49 | PN ---
Date of Progress Note: 06/18/2025 Subjective: The patient was seen this morning for followup. No new complaints or problems reported by the patient. She is overall feeling much better. She in fact looks a lot better today. She did have some feeling of chills and hot and cold last night, but overall that has improved significantly since her admission after starting the IV vancomycin therapy. She still has a little bit headache on the left frontal area, but that is better. Nausea has significantly improved. Objective: Vital Signs: Reviewed. HEENT: Unremarkable. Lungs: Clear to auscultation. Heart: Sounds normal. Abdomen: Soft. Bowel sounds normal. No guarding, rigidity, tenderness, distention. Extremities: No leg edema. Impression: 1. Urinary tract infection, organism MRSA. 2. Hypothyroidism. Plan: We will go ahead and continue current medication. Continue current IV vancomycin. Her vancom ycin trough level will be done today and Social Service will need to make arrangements for home IV an tibiotic therapy. Possible discharge to go home tomorrow. Details were discussed with her. Also ta lked to her regarding her importance of followup with the urologist, which she is doing it already on an outpatient basis and so far, urologist has not come up with any definite answer for her recurrent urinary tract infection, but they constantly looking into it and trying to assist her. Recently, elizabeth powers had urodynamic study done and after that, she was prescribed Gemtesa, which she has not had a chance to start it, but she will do so when she gets out of the hospital. We will see her tomorrow for followup. GRZEGORZ/MODL Voice ID: [id number] Report ID: [id number]
[2025-06-19 05:39] LABS: Absolute Lymphocytes (CBC) 1.5 K/uL (0.7-4.9); Hematocrit 40.2 % (36.0-45.0); Hemoglobin 13.6 g/dL (12.0-15.0); MCH 32.8 pg (27.0-35.0); MCHC 33.9 g/dL (32.0-36.0); MCV 96.7 fL (80-100); MPV 8.1 fL (7.6-11.3); Nucleated RBC Absolute Count 0.0 (0-0); Nucleated Red Blood Cells % 0.1 % (0-0); RBC Red Blood Cell Count 4.16 M/uL (3.86-4.86); White Blood Count 5.20 thou/uL (4.3-10.9)
[2025-06-19 05:56] LABS: Anion Gap 8.0 mEq/L (5.0-15.0); BUN Blood Urea Nitrogen 15.0 mg/dL (7-18); Glucose Level 96.0 mg/dL (74-106); Magnesium 2.0 mg/dL (1.6-2.4); Potassium 4.0 mEq/L (3.5-5.1)
[2025-06-19 12:31] VITALS: TEMP 98
[2025-06-19 16:05] VITALS: BP 131/55
--- NOTE | 2025-06-19 22:26 | DS ---
Date of Discharge: 06/19/2025 Physical Examination: HEENT: Unremarkable. Lungs: Clear to auscultation. Heart: Sounds normal. Abdomen: Soft. Bowel sounds normal. No guarding, rigidity, tenderness, distention. Extremities: No leg edema. Laboratory Data: Upon admission WBC 8.3, hemoglobin 16.2, platelets 259. Sodium 136, potassium 3.8, chloride 101, bicarb 29, BUN 16, creatinine 1.24, glucose 93. Liver function tests unremarkable. Urinalysis done in the emergency room was normal except appearance was turbid. Today, WBC 5.2, hemoglobin 13.6, platelets 225. Sodium 139, potassium 4, chloride 107, bicarb 28, BUN 15, creatinine 1.09, glucose 96. Discharge Medications And Instructions: Continue all prior home medications. Take Vancomycin 2000 mg IV daily at 2 pm. Last dose of Vancomycin on 06/26/2025. Home health nurse to assist patient with following: Change PICC line dressing per protocol Flush PICC line with saline per protocol Remove PICC line on 06/27/2025 Draw blood for Vancomycin trough level at 1 pm on 06/20/2025 and bring specimen to [facility] lab for test and call Dr. Driver same day with result. Follow up with Dr. Driver next week Discharge Diagnoses: 1. Urinary tract infection, organism methicillin-resistant Staphylococcus aureus. 2. Hypertension. 3. Hyperlipidemia. 4. Hypothyroidism. 5. Impaired fasting glucose. 6. Vitamin B12 deficiency. 7. Folic acid deficiency. 8. Anxiety. 9. Vitamin D deficiency. 10. Chronic kidney disease stage 3A. Hospital Course: This is a 60-year-old very pleasant female patient, who has history of recurrent urinary tract infection, is under care of urologist in [place] for this problem, recently had another urinary tract infection for which she ended up going to [facility] and initially she was started on empiric antibiotic cefdinir and once the urine culture came back growing MRSA, the patient was contacted by Urgent Care to start doxycycline, but the patient's symptoms continued to get worse, so she contacted me requesting admission to the hospital and she was asked to come to ER. After she was evaluated, she was admitted to the hospital. IV vancomycin was started for this urinary tract infection which is due to MRSA. After starting her IV vancomycin, all her symptoms that is feeling hot and cold and headache and burning sensation on urination, all these symptoms have completely resolved now. The patient is feeling much better. She feels like she is back to her normal self. PICC line was placed and Social Service was consulted to make arrangements for home IV antibiotic therapy. The patient is on vancomycin 2 g every 24 hours and vancomycin trough level from yesterday was 15, so plan is to do another vancomycin trough level tomorrow and home health nurse to notify me with the results, so we can decide about further dose adjustment if necessary. The patient's last dose of vancomycin will be on 06/26/2025 and the PICC line can be removed on 06/27/2025. 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 Total time spent today 40 minutes. GRZEGORZ/NAGA Voice ID: [id number] Report ID: [id number] MANINDER
== END 2025-06-19 18:32 | disposition home health service (06) | DRG 690 ==
LOC: ER 11:50 → ERHOLD 13:47 → 4TH 14:25 → OBSVTOIN 06-18 08:30
PROVIDERS: ADMIT Internal Medicine; ATTEND Internal Medicine
PROC: 02HV33Z Insertion of Infusion Device into Superior Vena Cava, Percutaneous Approach (ICD-10-PCS; principal; 2025-06-17)
DX: N39.0 Urinary tract infection, site not specified (principal); E03.9 Hypothyroidism, unspecified; E78.5 Hyperlipidemia, unspecified; F41.9 Anxiety disorder, unspecified; E53.8 Deficiency of other specified B group vitamins; I12.9 Hypertensive chronic kidney disease with stage 1 through stage 4 chronic kidney disease, or unspecified chronic kidney disease; N18.31 Chronic kidney disease, stage 3a; B95.62 Methicillin resistant Staphylococcus aureus infection as the cause of diseases classified elsewhere; R73.01 Impaired fasting glucose; Z88.0 Allergy status to penicillin; Z90.5 Acquired absence of kidney; Z90.49 Acquired absence of other specified parts of digestive tract; Z86.711 Personal history of pulmonary embolism; Z85.528 Personal history of other malignant neoplasm of kidney
CPT/HCPCS: 36415; 71045; 80048; 80053; 80202; 81001; 83735; 85025; 87040; 96374; 99284; G0378; J1650; J2405; J3370; J7040; J7050

== ENCOUNTER 2025-06-22 12:20 | Emergency (ER) | payer OTHER ==
[2025-06-22 13:44] LABS: Sqamous Epithelial <5 /HPF (None Seen); Urine Culture Reflex Order NOT NEEDED; Urine Microscopic Reflex YN ORDER UMIC; Urine Yeast (Budding) Trace /HPF (None Seen)
[2025-06-22] MEDS ORDERED: KETOROLAC 30 MG/ML INJ ONE (14:12)
[2025-06-22 14:21] LABS: PT Prothrombin Time 12.2 SECONDS (10-13.0); PTT, Activated Partial Thromb 27.7 SECONDS (27.2-37.4); Protime INR 1.08
[2025-06-22 14:29] LABS: ALT/SGPT 31.0 U/L (13-56); AST/SGOT 19.0 U/L (15-37); Albumin 3.6 g/dL (3.4-5.0); Albumin/Globulin Ratio 1.1 (1.1-1.8); Alkaline Phosphatase 108.0 U/L (45-117); Anion Gap 7.8 mEq/L (5.0-15.0); BUN Blood Urea Nitrogen 9.0 mg/dL (7-18); Globulin 3.4 g/dL (2.3-3.5); Glucose Level 117.0 mg/dL (74-106); Potassium 3.8 mEq/L (3.5-5.1)
[2025-06-22 15:02] LABS: Absolute Lymphocytes (CBC) 1.4 K/uL (0.7-4.9); Hematocrit 42.6 % (36.0-45.0); Hemoglobin 14.8 g/dL (12.0-15.0); MCH 33.3 pg (27.0-35.0); MCHC 34.8 g/dL (32.0-36.0); MCV 95.7 fL (80-100); MPV 8.9 fL (7.6-11.3); Nucleated RBC Absolute Count 0.0 (0-0); Nucleated Red Blood Cells % 0.2 % (0-0); RBC Red Blood Cell Count 4.45 M/uL (3.86-4.86); White Blood Count 8.80 thou/uL (4.3-10.9)
--- NOTE | 2025-06-22 15:16 | RAD REPORT ---
EXAMINATION: CT ABDOMEN AND PELVIS WITH CONTRAST CLINICAL INDICATION: ABD PAIN TECHNIQUE: CT abdomen and pelvis was performed, after the administration of IV contrast, as per [facility] protocol. Axial, sagittal and coronal reconstructions were obtained. One or more of the following dose reduction techniques were used: Automated exposure control, adjustment of the mA and k V according to patient size, and iterative reconstruction. Unless otherwise specified, incidental findings do not require dedicated imaging follow-up. COMPARISON: No prior exam. FINDINGS: LOWER CHEST: The visualized lung bases are clear. LIVER: Normal in size and contour. No focal lesion. Cholecystectomy clips. SPLEEN: Normal size. No focal lesion. PANCREAS: No mass, ductal dilation, or marcelo-pancreatic fluid. ADRENALS: 15 mm nodule left adrenal gland, likely benign adenoma. Normal right adrenal gland. KIDNEYS: No hydronephrosis. Postsurgical defect presumed inferolateral right kidney. GASTROINTESTINAL TRACT: No evidence of free air, significant intra-abdominal free fluid, bowel obstru ction or abscess. Moderate rectosigmoid stool. APPENDIX: Normal appendix. LYMPH NODES: No lymphadenopathy. MUSCULOSKELETAL: Extensive postsurgical hardware thoracolumbar spine. ADDITIONAL FINDINGS: Small fat-containing umbilical hernia. Significant air in the urinary bladder. IMPRESSION: Significant air is present in the urinary bladder which may indicate infection or recent instrumentat ion.
[2025-06-22] MEDS ORDERED: METOCLOPRAMIDE 10 MG/2mL INJ ONE (16:30)
[2025-06-22] MEDS ORDERED: DIPHENHYDRAMINE 50 MG/ML VIAL ONE (16:30)
[2025-06-22] MEDS ORDERED: NA CHLORIDE 0.9% 50 ML ONE (16:30)
[2025-06-22 16:41] LABS: Influenza A Ag Negative; Influenza B Ag Negative; SARS-CoV-2 Antigen Rapid Res Negative (Negative)
[2025-06-22] MEDS ORDERED: FLUCONAZOLE 100 MG TAB ONE (17:42)
--- NOTE | 2025-06-22 17:46 | EDPHYS ---
Physician Documentation [facility] Name: Leeanne Sinclair Age: 60 yrs Sex: Female : 1965 Arrival Date: 06/22/2025 Time: 12:20 Bed 16 Private MD: ED Physician Hunter Breen HPI: 06/22 13:20 This 60 yrs old Female presents to ER via Ambulatory with complaints of UTI. sb4 13:35 Patient states she was recently hospitalized for UTI secondary to MRSA. She was sb4 discharged a few days ago with PICC line in place, receiving vancomycin daily. States that she has been feeling poorly intermittently, but her symptoms returned worse today with chills, abdominal pain, left flank pain, headache, nausea.. Historical: - Allergies: 13:09 PENICILLINS; me1 - PMHx: 13:09 Aneurysm; Pulmonary Embolism; UTI; MRSA (Unknown); me1 - PSHx: 13:09 Back surgery x2; Cholecystectomy; lap band; mass removed from right kidney; me1 - Immunization history:: Adult Immunizations up to date. - Infectious Disease History:: MRSA (w/in 1 year), . - Social history:: Smoking status: Patient denies any tobacco usage or history of. ROS: 13:36 Cardiovascular: Negative for chest pain, palpitations, and edema, sb4 13:36 Constitutional: Positive for chills, malaise, 13:36 Abdomen/GI: Positive for abdominal pain, nausea, 13:36 Back: Positive for flank pain, on the left, 13:36 Neuro: Positive for headache, 13:36 All other systems are negative, Exam: 13:36 Head/Face: Normocephalic, atraumatic. Eyes: Extra-ocular motions intact. Periorbital sb4 areas with no swelling, redness, or edema. ENT: Mucous membranes moist. Respiratory: No increased work of breathing, no retractions or nasal flaring. Skin: Warm, dry with normal turgor. Normal color with no rashes, no lesions, and no evidence of cellulitis. 13:36 Constitutional: The patient appears in no acute distress, alert, awake, Vital Signs: 13:05 BP 147 / 86; Pulse 90; Resp 16; Temp 98.6; Pulse Ox 99% ; Weight 112.49 kg; Height 5 me1 ft. 7 in. ; Pain 8/10; 15:00 BP 133 / 68; Pulse 63; Resp 16; Pulse Ox 100% ; db 16:00 BP 133 / 74; Pulse 63; Resp 16; Pulse Ox 98% ; db 17:30 BP 128 / 74; Pulse 66; Resp 16; Pulse Ox 99% ; db 13:05 Body Mass Index 38.84 (112.49 kg, 170.18 cm) me1 13:05 Pain Scale: Adult me1 MDM: 12:23 Medical Screening Exam initiated sb4 19:27 Differential diagnosis: UTI, pyelo, LEA, stone. Data reviewed: vital signs, nurses sb4 notes, lab test result(s), radiologic studies, I have discussed the patient's presentation/case with the attending Emergency Department Physician; and as a result, I will discharge patient. Consideration of Admission/Observation Escalation of care including admission/observation considered. Management of patient was discussed with the following: Hospitalist: sandra Chicas vanc trough checked.. result was elevated at 22.5. Dr. Driver wants to change vancomycin 2 gram q24h to 2 g gram q36 hours, first dose on 06/23 at 2AM. Dry Cleaning Machine Operator: . Counseling: I had a detailed discussion with the patient and/or guardian regarding the historical points, exam findings, and any diagnostic results supporting the discharge/admit diagnosis, lab results, radiology results, the need for outpatient follow up, for definitive care, to return to the emergency department if symptoms worsen or persist or if there are any questions or concerns that arise at home. ED course: I had to contact the patient's pharmacy that delivers her vancomycin because she did not receive her dosage today. I called to inquire. They stated that they did not receive any more orders for vancomycin because her trough was never completed. I discussed with them the trough result and Dr. Driver's order, they will deliver her vancomycin this evening as well as her to doses for the future. 19:31 ED course: Discussed at length with patient her new antibiotic administration sb4 regimen-first dose to be administered on 926 at 2 AM, second dose on 927 at 2 PM and final dose on 929 at 2 AM. I also wrote down all of these dates and times on her discharge instructions. Her vancomycin doses should be delivered this evening. I did advise her that if these do not come in then she should return to the ED for antibiotic administration. She does have a follow-up appointment with Dr. Driver on Thursday.. 06/22 13:10 Order name: Blood Culture Adult (2) sb4 06/22 13:10 Order name: CBC with Diff; Complete Time: 15:05 sb4 06/22 13:10 Order name: CMP; Complete Time: 14:33 sb4 06/22 13:10 Order name: Lactate w/ 2H reflex if indic.; Complete Time: 14:33 sb4 06/22 13:10 Order name: Protime (+inr); Complete Time: 14:22 sb4 06/22 13:10 Order name: Ptt, Activated; Complete Time: 14:22 sb4 06/22 13:10 Order name: UA Rfx Seth Cult if indicated; Complete Time: 13:47 sb4 06/22 15:05 Order name: COVID-19 Ag + Flu A+B Ag; Complete Time: 16:46 sb4 06/22 16:09 Order name: Vancomycin,Trough; Complete Time: 16:37 sb4 06/22 13:12 Order name: CT Abd/Pelvis - IV Contrast Only; Complete Time: 15:19 sb4 06/22 13:10 Order name: IV Saline Lock - Large Bore; Complete Time: 14:40 sb4 06/22 13:10 Order name: Labs collected and sent; Complete Time: 14:41 sb4 Administered Medications: 14:40 Drug: Ketorolac IVP 15 mg IVP once Route: IVP; Site: right upper arm; db 16:25 Drug: diphenhydrAMINE IVP 25 mg IVP once Route: IVP; Site: right upper arm; db 16:25 Drug: metoCLOPramide IVP 10 mg IVP once; over 1 to 2 minutes Route: IVP; Site: right db upper arm; 17:37 Drug: Fluconazole PO 200 mg PO once Route: PO; db Disposition: 18:16 Co-signature as Attending Physician, Hunter Breen MD I reviewed the patient's care rn provided by the Advanced Practice Provider and agree with the diagnosis and treatment plan. Disposition Summary: 06/22/25 17:45 Discharge Ordered Problem: new sb4 Symptoms: have improved sb4 Condition: Stable sb4 Diagnosis - UTI/ Urinary tract infection, site not specified sb4 Followup: sb4 - With: Emergency Department - When: As needed - Reason: Fever > 102 F, Worsening of condition Discharge Instructions: - Discharge Summary Sheet sb4 - PICC Home Care Guide sb4 Forms: - Antibiotic Education sb4 - Patient Portal Instructions sb4 - Leadership Thank You Letter sb4 Signatures: Dispatcher [employer] EDHunter Pino MD MD rn Benton, Danielle, RN RN Maya Angela, PANicoleC PA-C sb4 Sari Epstein RN RN me1 Corrections: (The following items were deleted from the chart) 13:10 13:10 BLOOD CULTURE*+BA.LAB.BRZ ordered. EDMS EDMS 13:10 13:10 CBC+H.LAB.BRZ ordered. EDMS EDMS 13:10 13:10 COMPREHENSIVE METABOLIC PANEL+C.LAB.BRZ ordered. EDMS EDMS 13:10 13:10 LACTATE+C.LAB.BRZ ordered. EDMS EDMS 13:10 13:10 PROTIME (+INR)+COAG.LAB.BRZ ordered. EDMS EDMS 13:10 13:10 PTT, ACTIVATED+COAG.LAB.BRZ ordered. EDMS EDMS 13:10 13:10 UA Rfx Seth Cult if indicated+U.LAB.BRZ ordered. EDMS EDMS 13:11 13:09 Infectious Disease History: Denies. me1 me1 16:09 16:09 VANCOMYCIN,TROUGH+C.LAB.BRZ ordered. EDMS EDMS
--- NOTE | 2025-06-22 17:46 | ER ---
Nurse's Notes [facility] Name: Leeanne Sinclair Age: 60 yrs Sex: Female : 1965 Arrival Date: 06/22/2025 Time: 12:20 Bed 16 Private MD: Diagnosis: UTI/ Urinary tract infection, site not specified Presentation: 06/22 13:05 Chief complaint: Patient states: discharged from hospital 2 days ago for UTI. Has PICC me1 line to [facility] and is receiving Vancomycin daily at home. c/o suprapubic abd pain and left flank pain, urinary frequency and is feeling sick again. Reports SKELTON and body aches. Called Dr Driver and was sent back to ER today. Coronavirus screen: Vaccine status: Patient reports being unvaccinated. Ebola Screen: No symptoms or risks identified at this time. Initial Sepsis Screen: Does the patient meet any 2 criteria? HR > 90 bpm. Does the patient have a suspected source of infection? No. Patient's initial sepsis screen is negative. Risk Assessment: Do you want to hurt yourself or someone else? Patient reports no desire to harm self or others. Onset of symptoms was June 21, 2025. 13:05 Method Of Arrival: Ambulatory me1 13:05 Acuity: WILLIS 3 me1 Historical: - Allergies: 13:09 PENICILLINS; me1 - PMHx: 13:09 Aneurysm; Pulmonary Embolism; UTI; MRSA (Unknown); me1 - PSHx: 13:09 Back surgery x2; Cholecystectomy; lap band; mass removed from right kidney; me1 - Immunization history:: Adult Immunizations up to date. - Infectious Disease History:: MRSA (w/in 1 year), . - Social history:: Smoking status: Patient denies any tobacco usage or history of. Screenin:03 [facility] ED Fall Risk Assessment (Adult) History of falling in the last 3 months, db including since admission No falls in past 3 months (0 pts) Confusion or Disorientation No (0 pts) Intoxicated or Sedated No (0 pts) Impaired Gait Yes (1 pt) Mobility Assist Device Used Yes (1 pt) Altered Elimination No (0 pt) Score/Fall Risk Level 0 - 2 = Low Risk Oriented to surroundings, Maintained a safe environment. Abuse screen: Denies threats or abuse. Denies injuries from another. Nutritional screening: No deficits noted. Tuberculosis screening: No symptoms or risk factors identified. Assessment: 17:00 Reassessment: Patient appears in no apparent distress at this time. Patient and/or db family updated on plan of care and expected duration. Pain level reassessed. Patient is alert, oriented x 3, equal unlabored respirations, skin warm/dry/pink. 18:00 Reassessment: Patient appears in no apparent distress at this time. Patient and/or db family updated on plan of care and expected duration. Pain level reassessed. Patient is alert, oriented x 3, equal unlabored respirations, skin warm/dry/pink. General: Appears in no apparent distress. comfortable, Behavior is calm, cooperative. Pain: Denies pain. Neuro: Level of Consciousness is awake, alert, obeys commands, Oriented to person, place, time, situation. Respiratory: Airway is patent Respiratory effort is even, unlabored, Respiratory pattern is regular, symmetrical. Vital Signs: 13:05 BP 147 / 86; Pulse 90; Resp 16; Temp 98.6; Pulse Ox 99% ; Weight 112.49 kg; Height 5 me1 ft. 7 in. ; Pain 8/10; 15:00 BP 133 / 68; Pulse 63; Resp 16; Pulse Ox 100% ; db 16:00 BP 133 / 74; Pulse 63; Resp 16; Pulse Ox 98% ; db 17:30 BP 128 / 74; Pulse 66; Resp 16; Pulse Ox 99% ; db 13:05 Body Mass Index 38.84 (112.49 kg, 170.18 cm) me1 13:05 Pain Scale: Adult me1 ED Course: 12:22 Patient arrived in ED. cj3 12:23 Maya Hardin PA-C is PHCP. sb4 12:23 Hunter Breen MD is Attending Physician. sb4 13:09 Triage completed. me1 13:09 Arm band placed on Patient placed in waiting room. me1 13:27 Urine collected: clean catch specimen, clear. me1 13:27 UA Rfx Seth Cult if indicated Sent. me1 14:20 Torie Angel, RN is Primary Nurse. db 15:02 CT Abd/Pelvis - IV Contrast Only In Process Unspecified. EDMS 18:03 Patient has correct armband on for positive identification. Bed in low position. Call db light in reach. Side rails up X 1. Provided Education on: DISCHARGE AND FOLLOWUP. Pulse ox on. NIBP on. Warm blanket given. Pillow given. 18:03 No provider procedures requiring assistance completed. IV discontinued, intact, db bleeding controlled, No redness/swelling at site. Administered Medications: 14:40 Drug: Ketorolac IVP 15 mg IVP once Route: IVP; Site: right upper arm; db 16:25 Drug: diphenhydrAMINE IVP 25 mg IVP once Route: IVP; Site: right upper arm; db 16:25 Drug: metoCLOPramide IVP 10 mg IVP once; over 1 to 2 minutes Route: IVP; Site: right db upper arm; 17:37 Drug: Fluconazole PO 200 mg PO once Route: PO; db Medication: 18:03 VIS not applicable for this client. db Outcome: 17:45 Discharge ordered by MD. solitario 18:03 Discharged to home ambulatory, with family, db 18:03 Condition: stable 18:03 Discharge instructions given to patient, Instructed on discharge instructions, follow up and referral plans. 18:05 Patient left the ED. db Signatures: Dispatcher [employer] Torie Kinsey, RN RN db Maya Hardin, PA-C PA-C sb4 Sari Epstein, RN RN me1 Nasreen Ye cj3 Corrections: (The following items were deleted from the chart) 13:11 13:09 Infectious Disease History: Denies. me1 me1
[2025-06-22 18:26] VITALS: TEMP 98.6
[2025-06-22 18:31] VITALS: BP 128/74; O2SAT 99
== END 2025-06-22 18:05 | disposition home or self-care (01) ==
LOC: ER 12:20
DX: N39.0 Urinary tract infection, site not specified (principal); Z11.52 Encounter for screening for COVID-19
CPT/HCPCS: 87040 ×2; 85025; 81001; 36415; 85610; 83605; 85730; 80202; 80053; 74177; 96375; 96374; 99284; 87428; Q9967; J2765; J1200; J1885